=== PATIENT | female | born 1970 | race Caucasian/White ===

== ENCOUNTER 2024-11-22 12:10 | Observation (INO) ==
[2024-11-22] MEDS: DUONEB NEB STA (12:46)
[2024-11-22 12:53] LABS: IMMATURE GRANULOCYTE # (AUTO) 0.0 (0.0-1.0); IMMATURE GRANULOCYTE % (AUTO) 0.4 % (0.0-5.0); RDW COEFFICIENT OF VARIATION 15.2 % (11.6-14.8)
[2024-11-22 13:06] LABS: CREATININE 0.58 mg/dL (0.60-1.30)
[2024-11-22] MEDS: SOLU-MEDROL 125 MG ONE (13:08)
[2024-11-22] MEDS: SOLU-MEDROL 125 MG 125 MG in SODIUM CHLORIDE 50 ML IV STA (13:08)
--- NOTE | 2024-11-22 13:23 | ED.PDOC ---
General HPI ED Provider: Dr. KAREN SHORE DO Chief Complaint: Shortness of Air Stated Complaint: 54-year-old white female presents with complaints of acute shortness of breath. Patient has COPD and CHF and has been having acute worsening shortness of breath for the last 2 to 3 days. She states she has actually been more short of breath for a week but it got acutely worse. She went to [facility] and basically was given some steroids and some breathing treatments but when they ask her about methamphetamine use and she was honest they sort of "wash their hands of me". She presents today POV after her just not been able to get any relief from the severe shortness of breath states she feels like she has rubber bands wrapped around her chest tightly. She does not complain of any diaphoresis or left arm pain or left jaw pain. No nausea or vomiting associated with chest discomfort. She does not describe chest pain just very chest tight. Not moving much air. She has used her inhalers and her nebulizer at home. She has albuterol for home nebs. As far as she can tell she has not had fevers or chills. She is just been really really hot and having to sit in front of the fan and then gets a cold and has to cut the fan off. She denies any sick contacts that she is aware. Specifically no headache no runny nose no sore throat no pain on urination no abdominal pain no black tarry stools no bright red rectal blood no nausea vomiting diarrhea no unilateral weakness no vision changes and no headache. Patient is compliant with meds and denies being out of anything. Time Seen by Provider: 11/22/24 12:23 Mode of Arrival: Walk-In Information Source: Patient Exam Limitations: No limitations Nursing and Triage Documentation Reviewed and Agree: Yes Opioid Naive vs. Tolerant Does Patient Take Opioids?: Yes Is Patient Opioid Naive?: No What is Opioid Naive?: *Opioid Naive implies the patient is not already taking opioids or not chronically receiving opioids on a daily basis. *PRN dosing is not "usually" associated with tolerance. *Patients are at higher risk of over-sedation and aspiration. Is Patient Opioid Tolerant?: Yes What is Opioid Tolerant?: *Opioid Tolerance implies less than the expected response to an opioid. *Acquired tolerance is defined by the patient taking 60mg of oral morphine daily (or equianalgesic dose of another opioid) for 1 week or more. *Often associated with chronic pain. *May take more than usual dose to achieve desired pain control. Review of Systems Review Of Systems Constitutional: Denies Chills or Fever Eyes: Denies Blurred vision or Vision change Ears, Nose, Mouth, Throat: Denies Ear pain, Nose discharge or Throat pain Respiratory: Reports Cough, Orthopnea, Shortness of Breath, Stridor, Wheezing and Other (Chest tightness) Cardiac: Denies Chest pain GI: Denies Abdominal pain, Diarrhea, Nausea or Vomiting : Denies Burning or Dysuria Neurological: Reports Headache; Denies Weakness PFSH PFSH Family History Mother Lung cancer FATHER Myocardial infarct Social History Smoking and tobacco status: Current every day smoker Tobacco type: cigarettes Smoking packs per day: 1 Smoking cigarettes per day: 20.0 Alcohol intake: never Substance use type: former substance user Carmen/yazdanism: N/A Special carmen needs: No Agree to transfusion: Yes Adopted: No Caregiver/support person: No Foster care: No Household members: other Housing: house Marital status: U UNKNOWN Lives independently: Yes Daycare: no daycare Number of children: 4 Highest education level completed: some college, no degree Financial difficulty paying for basics: very hard service: No longterm: No Current occupational status: disabled History of recent travel: No Current gender identity: female Seatbelt use: sometimes Helmet use: Yes Drives intoxicated or rides with intoxicated local intermodal truck driver: No Current diet type/program: regular Working smoke detector in home: Yes Fire extinguisher in home: Yes Carbon monoxide detector in home: No Firearms in home: No What type of physical activity do you participate in?: none Female Reproductive History Menstrual Hx Hysterectomy: Yes Hx Tubal Ligation: No Physical Exam Physical Exam Appearance: Reports Other (Acutely and chronically ill-appearing 54-year-old white female who appears older than stated age. She is in moderate to severe respiratory distress with only 1-2 word sentences able to be spoken. She is tachypneic tachycardic and tripoding. She is sitting in front of a fan at time of initial exam) Ill-appearing: Moderate Pain Distress: None Eyes: Reports LUIS EDUARDO, EOMI and Conjunctiva clear ENT: Reports Ears normal, Nose normal, Oropharynx normal, Rhinorrhea (minimal clear rhinorrhea.) and Dry mucosa; Denies Erythema Neck: Supple Respiratory: Reports Breath sounds diminished, Crackles, Rhonchi, Wheezes, Retractions and Other (Breath sounds are markedly diminished with markedly diminished air movement. Patient has wheezes and crackles with scattered rhonchi throughout. No definite asymmetry. Just not moving much air.) Cardiovascular: Reports Pulses normal, Tachycardia and Other (Unable to appreciate a murmur due to respiratory sounds.) GI/: Reports Soft, Nontender, Bowel sounds normal and Other (Abdomen is soft, obese, and protuberant but not distended. Normoactive bowel sounds. Not evaluated for masses or megaly. No rebound tenderness to exam.) Musculoskeletal: Reports Normal strength, ROM intact, No edema and No calf tenderness Skin: Reports Dry, Normal color, Pale and Other (Skin is cool to touch but patient is in front of a fan due to breathing problems.) Neurological: Reports Sensation intact, Motor intact, Reflexes intact, Cranial nerves intact, Alert and Oriented Psychiatric: Reports Affect appropriate and Mood appropriate Interpretation EKG Interpretation EKG Interpretation By: ED Physician (EKG interpreted by disposition at 1313 p.m. Karen Shore) Time of EKG #1: 13:09 Rate: Tachy (116) Rhythm: Sinus Ectopy: None [place]: [place] Interpretation: Normal intervals; no STEMI; LAE; ST-T abnormalities nonspecific; abnormal E Physician Progress Note Physician Progress Note: 54-year-old white female presents with complaints of acute shortness of breath. Patient has COPD and CHF and has been having acute worsening shortness of breath for the last 2 to 3 days. She states she has actually been more short of breath for a week but it got acutely worse. Patient's presentation along with significant clinical history prompts aggressive nebulizer, pulmonary treatments. Also will check labs and exclude any cardiac involvement. Patient's O2 sats are 95 to 96% on room air at this time. However she is markedly tachypneic and working hard. May need to consider BiPAP or even intubation if we cannot get respiratory status improved so she does not tire. Discussed with patient after DuoNeb and then some IV Lasix, she is still not moving as much air as I would like and still working to breathe. She is in agreement to be admitted and we have called nurse practitioner Clarence Arteaga who agrees to admit here. Accepted at 15:15p. Patient known to her. Course Course 11/23/24 05:29 11/23/24 05:29 Orders, Labs, Meds: Lab Review 11/22/24 12:46 WBC 9.49 RBC 4.51 Hgb 12.2 Hct 39.6 MCV 87.8 MCH 27.1 MCHC 30.8 L RDW Coeff of [place]ven[place] 15.2 H Plt Count 218 Immature Gran % (Auto) 0.4 Neut % (Auto) 61.7 Lymph % (Auto) 31.7 [place] % (Auto) 4.8 Eos % (Auto) 0.6 Baso % (Auto) 0.8 Neut # (Auto) 5.8 Lymph # (Auto) 3.0 [place] # (Auto) 0.5 Eos # (Auto) 0.1 Baso # (Auto) 0.1 Immature Gran # (Auto) 0.0 Sodium 141.5 Potassium 4.01 Chloride 104.2 Carbon Dioxide 27.2 Anion Gap 14.11 BUN 11.9 Creatinine 0.58 L Estimated GFR (MDRD) 108.00 BUN/Creatinine Ratio 20.51 Glucose 143.2 H Calcium 9.18 Total Bilirubin 0.77 AST 24.5 ALT 29.0 Alkaline Phosphatase 67.8 Troponin I 0.017 NT-Pro-B Natriuret Pep 6000 H Total Protein 6.73 Albumin 3.76 Globulin 2.97 Albumin/Globulin Ratio 1.26 Orders Category Date Time Status ADMIT OBSERVATION [PLACE PATIENT OBSERVATION] .TO ADMISSION 11/22/24 15:04 Active MEDSURG (MONITORED BED) EKG-(ED ONLY) Stat CARDIO 11/22/24 12:42 Completed TELEMETRY MONITORING TELE CARE 11/22/24 15:05 Active CBC W/ AUTO DIFF Stat LAB 11/22/24 12:46 Completed CMP [COMPREHENSIVE METABOLIC PANEL] Stat LAB 11/22/24 12:46 Completed NT-PROBNP(ED) Stat LAB 11/22/24 12:46 Completed TROPONIN I Stat LAB 11/22/24 12:46 Completed Ceftriaxone/D5w 1 gm Premix [Rocephin 1 gm/50 ml D5w] Meds 11/22/24 12:40 Discontinued 1 gm in 50 ml IV ONCE Furosemide [Lasix] Meds 11/22/24 13:30 Discontinued 60 mg IVP ONCE STA Ipratropium/Albuterol Neb [Duoneb] Meds 11/22/24 12:38 Discontinued 3 ml NEB ONCE STA Methylprednisolone Sod Succ/Pf [Solu-Medrol 125 mg] Meds 11/22/24 12:57 Discontinued 125 mg .ROUTE .STK-MED ONE Methylprednisolone Sod Succ/Pf [Solu-Medrol 125 mg] 125 Meds 11/22/24 12:39 Discontinued mg 0.9 % Sodium Chloride [Sodium Chloride] 50 ml IV ONCE CHEST, 2 VIEWS PA & LAT Stat RADS 11/22/24 13:04 Completed Medications Generic Name Dose Route Start Last Admin Trade Name Freq PRN Reason Stop Dose Admin Acetaminophen 650 mg 11/22/24 15:45 Acetaminophen 325 Mg Tablet PO Q4H PRN Mild Pain Albuterol/Ipratropium 3 ml 11/22/24 17:00 11/23/24 05:43 Ipratropium/Albuterol Vial.Neb NEB 3 ml RTQ4H LOVE Administration Amlodipine Besylate 10 mg 11/23/24 09:00 11/23/24 08:26 Amlodipine Besylate 5 Mg Tablet PO 10 mg DAILY LOVE Administration Aspirin 81 mg 11/23/24 07:30 11/23/24 08:28 Aspirin 81 Mg Tablet.Dr PO 81 mg DAILYWM2 LOVE Administration Atorvastatin Calcium 40 mg 11/22/24 21:00 11/22/24 20:29 Atorvastatin Calcium 20 Mg Tablet PO 40 mg BEDTIME LOVE Administration Budesonide/Formoterol Fumarate 2 puff 11/22/24 21:00 11/23/24 08:27 Budesonide/Formoterol Fumarate 160/4.5 Mcg Inhaler IH 2 puff BID LOVE Administration Clopidogrel Bisulfate 75 mg 11/23/24 09:00 11/23/24 08:26 Clopidogrel Bisulfate 75 Mg Tablet PO 75 mg DAILY LOVE Administration Empagliflozin 10 mg 11/23/24 09:00 11/23/24 08:27 Empagliflozin 10 Mg Tablet PO 10 mg DAILY LOVE Administration Furosemide 40 mg 11/22/24 21:00 11/23/24 05:16 Furosemide Inj 40 Mg/4 Ml Vial IVP 40 mg Q8HR LOVE Administration Gabapentin 600 mg 11/22/24 21:00 11/23/24 08:27 Gabapentin 300 Mg Capsule PO 600 mg TID LOVE Administration Lisinopril 40 mg 11/23/24 09:00 11/23/24 08:26 Lisinopril 40 Mg Tablet PO 40 mg DAILY LOVE Administration Metoprolol Succinate 100 mg 11/22/24 19:00 11/22/24 20:29 Metoprolol Succinate 50 Mg Tab.Er.24h PO 100 mg QPM LOVE Administration Nicotine 1 patch 11/23/24 09:00 11/23/24 09:02 Nicotine 21 Mg Patch.Td24 TD 1 patch DAILY LOVE Administration Oxycodone/Acetaminophen 1 tab 11/22/24 18:55 11/22/24 20:56 Oxycodone/Acetaminophen 10/325 Mg Tablet PO 1 tab Q6HR PRN Administration MODERATE PAIN Pantoprazole Sodium 40 mg 11/23/24 09:00 11/23/24 08:26 Pantoprazole Sodium 40 Mg Tablet.Dr PO 40 mg QDAC2 LOVE Administration Paroxetine HCl 40 mg 11/23/24 09:00 11/23/24 08:26 Paroxetine Hcl 20 Mg Tablet PO 40 mg QAM LOVE Administration Promethazine HCl 25 mg 11/22/24 20:49 11/22/24 20:56 Promethazine Hcl 25 Mg Tablet PO 25 mg Q6H PRN Administration Nausea / Vomiting Solifenacin 10 mg 11/23/24 09:00 11/23/24 08:26 Solifenacin Succinate 5 Mg Tablet PO 10 mg DAILY LOVE Administration Spironolactone 25 mg 11/23/24 09:00 11/23/24 08:25 Spironolactone 25 Mg Tablet PO 25 mg DAILY LOVE Administration Discontinued Medications Generic Name Dose Route Start Last Admin Trade Name Freq PRN Reason Stop Dose Admin Albuterol/Ipratropium 3 ml 11/22/24 12:38 11/22/24 12:46 Ipratropium/Albuterol Vial.Neb NEB 11/22/24 12:39 3 ml ONCE STA Administration Furosemide 60 mg 11/22/24 13:30 11/22/24 13:35 Furosemide Inj 100 Mg/10 Ml Vial IVP 11/22/24 13:31 60 mg ONCE STA Administration Methylprednisolone Sodium 52 mls @ 100 mls/hr 11/22/24 12:39 11/22/24 13:08 Succinate 125 mg/ Sodium IV 11/22/24 13:10 Not Given Chloride ONCE STA CEFTRIAXONE/D5W 1 GM PREMIX 1 gm in 50 mls @ 100 mls/hr 11/22/24 12:40 11/22/24 15:33 Rocephin 1 Gm/50 Ml D5w IV 11/22/24 13:09 Not Given ONCE STA Potassium Chloride 20 meq 11/23/24 08:24 11/23/24 09:02 Potassium Chloride 20 Meq Tab PO 11/23/24 08:25 20 meq ONCE ONE Administration Vital Signs: Temp Pulse Resp BP Pulse Ox 11/22/24 12:30 97.8 F 124 H 18 177/113 H 97 Discharge Plan Discharge Patient Disposition: PLACED OBSERVATION Discharge Problem: Acute dyspnea Acute respiratory failure Qualifiers: Respiratory failure complication: unspecified whether with hypoxia or hypercapnia Qualified Code(s): J96.00 - Acute respiratory failure, unspecified whether with hypoxia or hypercapnia Acute CHF (congestive heart failure) Qualifiers: Heart failure type: combined systolic and diastolic Qualified Code(s): I50.41 - Acute combined systolic (congestive) and diastolic (congestive) heart failure Did you review [place] NURSING INFORMATICS ANALYST for ALL controlled substances?: Not Applicable ED Provider: KAREN SOHRE Condition: Fair
--- NOTE | 2024-11-22 13:28 | DI ---
EXAM: PA AND LATERAL VIEWS OF THE CHEST HISTORY: Acute respiratory distress COMPARISON: Chest x-ray 09/23/2024 and priors FINDINGS: The cardiomediastinal silhouette is normal. There is no pneumothorax or pleural effusion. There is no consolidation, nodule or mass. The osseous structures are unremarkable. IMPRESSION: No acute cardiopulmonary process
[2024-11-22] MEDS: LASIX IVP STA (13:35)
[2024-11-22] MEDS: ROCEPHIN 1 GM/50 ML D5W 1 GM/50 ML BAG IV STA (15:33)
[2024-11-22] MEDS ORDERED: TYLENOL PO PRN (15:45)
[2024-11-22 16:54] VITALS: BMI 34.4
[2024-11-22] MEDS: DUONEB NEB SCH (17:55)
--- NOTE | 2024-11-22 18:25 | PCM ---
Date of Service Date Seen by Provider: 11/22/24 Time Seen by Provider: 15:15 Admit Day/Time Admission Date: 11/22/24 Admission Time: 15:00 Reason for Admission Chief Complaint: ACUTE RESPITORY DISTRESS, ACUTE CHF Hospital Provider Hospital Provider: HAYDER NEAL, [facility] History of Present Illness History of Present Illness: 54 yo female with pmh of CHFrEF, HTN, HLD, GERD, and methamphetamine abuse presented to the ER with complaints of shortness of breath. States she was seen at [facility] ER approx 3 days ago cause her inhaler and neb treatments were not effective and once she told them she had used meth they dismissed her. Per records, there is no record of her being at [facility]. States that SOB has continued to worsen, has been taking her meds occasionally but not daily, and her nebs don't seem to be helping anymore. Admits to using meth a few days ago in attempt to help "open her up like it used to" but was not helpful. Denies any chest pain, fever, or other symptoms. Does report worsening lower extremity edema. Found to have BNP of 6000. Chest xray clear. Other labs unremarkable. Maintaining O2 sat above 90% on RA. Patient does have some accessory muscle use but is able to converse without difficulty. Of note, patient's diuretics have not been filled since discharge date of last admission in September. She was prescribed 1 month supply with no refills and has not seen PCP. Admitted to Med/Surg Observation. Case Discussed With Case Discussed With: Patient's case was discussed with the ER Physicians, Dr. Shore. [facility] Family History Mother Lung cancer FATHER Myocardial infarct Social History Smoking and tobacco status: Current every day smoker Tobacco type: cigarettes Smoking packs per day: 1 Smoking cigarettes per day: 20.0 Alcohol intake: never Substance use type: former substance user Carmen/rastafari: N/A Special carmen needs: No Agree to transfusion: Yes Adopted: No Caregiver/support person: No Foster care: No Household members: other Housing: house Marital status: U UNKNOWN Lives independently: Yes Daycare: no daycare Number of children: 4 Highest education level completed: some college, no degree Financial difficulty paying for basics: very hard service: No detention: No Current occupational status: disabled History of recent travel: No Current gender identity: female Seatbelt use: sometimes Helmet use: Yes Drives intoxicated or rides with intoxicated funeral driver: No Current diet type/program: regular Working smoke detector in home: Yes Fire extinguisher in home: Yes Carbon monoxide detector in home: No Firearms in home: No What type of physical activity do you participate in?: none Allergies Allergies Allergy/AdvReac Type Severity Reaction Status Date / Time codeine AdvReac RASH Verified 11/22/24 12:30 Sulfa (Sulfonamide AdvReac Rash Verified 11/22/24 12:30 Antibiotics) Current Medications Home Medications Acetaminophen (Acetaminophen 325 Mg Tablet) 650 mg PO Q4H PRN PRN Reason: Mild Pain Albuterol/Ipratropium (Ipratropium/Albuterol Vial.Neb) 3 ml NEB RTQ4H [facility] Last Admin: 11/23/24 05:43 Dose: 3 ml Amlodipine Besylate (Amlodipine Besylate 5 Mg Tablet) 10 mg PO DAILY [facility] Last Admin: 11/23/24 08:26 Dose: 10 mg Aspirin (Aspirin 81 Mg Tablet.Dr) 81 mg PO DAILYWM2 [facility] Last Admin: 11/23/24 08:28 Dose: 81 mg Atorvastatin Calcium (Atorvastatin Calcium 20 Mg Tablet) 40 mg PO BEDTIME [facility] Last Admin: 11/22/24 20:29 Dose: 40 mg Budesonide/Formoterol Fumarate (Budesonide/Formoterol Fumarate 160/4.5 Mcg Inhaler) 2 puff IH BID [facility] Last Admin: 11/23/24 08:27 Dose: 2 puff Clopidogrel Bisulfate (Clopidogrel Bisulfate 75 Mg Tablet) 75 mg PO DAILY [facility] Last Admin: 11/23/24 08:26 Dose: 75 mg Empagliflozin (Empagliflozin 10 Mg Tablet) 10 mg PO DAILY [facility] Last Admin: 11/23/24 08:27 Dose: 10 mg Furosemide (Furosemide Inj 40 Mg/4 Ml Vial) 40 mg IVP Q8HR [facility] Last Admin: 11/23/24 05:16 Dose: 40 mg Gabapentin (Gabapentin 300 Mg Capsule) 600 mg PO TID [facility] Last Admin: 11/23/24 08:27 Dose: 600 mg Lisinopril (Lisinopril 40 Mg Tablet) 40 mg PO DAILY [facility] Last Admin: 11/23/24 08:26 Dose: 40 mg Metoprolol Succinate (Metoprolol Succinate 50 Mg Tab.Er.24h) 100 mg PO QPM [facility] Last Admin: 11/22/24 20:29 Dose: 100 mg Nicotine (Nicotine 21 Mg Patch.Td24) 1 patch TD DAILY [facility] Last Admin: 11/23/24 09:02 Dose: 1 patch Oxycodone/Acetaminophen (Oxycodone/Acetaminophen 10/325 Mg Tablet) 1 tab PO Q6HR PRN PRN Reason: MODERATE PAIN Last Admin: 11/22/24 20:56 Dose: 1 tab Pantoprazole Sodium (Pantoprazole Sodium 40 Mg Tablet.Dr) 40 mg PO QDAC2 [facility] Last Admin: 11/23/24 08:26 Dose: 40 mg Paroxetine HCl (Paroxetine Hcl 20 Mg Tablet) 40 mg PO QAM [facility] Last Admin: 11/23/24 08:26 Dose: 40 mg Promethazine HCl (Promethazine Hcl 25 Mg Tablet) 25 mg PO Q6H PRN PRN Reason: Nausea / Vomiting Last Admin: 11/22/24 20:56 Dose: 25 mg Solifenacin (Solifenacin Succinate 5 Mg Tablet) 10 mg PO DAILY [facility] Last Admin: 11/23/24 08:26 Dose: 10 mg Spironolactone (Spironolactone 25 Mg Tablet) 25 mg PO DAILY [facility] Last Admin: 11/23/24 08:25 Dose: 25 mg albuterol sulfate 90 mcg/actuation aerosol inhaler 2 puff inhalation Q4H PRN shortness of breath or wheezing 07/15/24 [History Confirmed 11/22/24] amlodipine 10 mg tablet (Norvasc) 10 mg PO QDAY 07/15/24 [History Confirmed 11/22/24] aspirin 81 mg tablet,delayed release 81 mg PO QDAY 07/15/24 [History Confirmed 11/22/24] atorvastatin 40 mg tablet 40 mg PO QHS 07/15/24 [History Confirmed 11/22/24] clopidogrel 75 mg tablet (Plavix) 75 mg PO QDAY 07/15/24 [History Confirmed 11/22/24] cyclobenzaprine 10 mg tablet 30 mg PO BID PRN muscle spasm 07/15/24 [History Confirmed 11/22/24] gabapentin 600 mg tablet 600 mg PO TID 07/15/24 [History Confirmed 11/22/24] lisinopril 40 mg tablet 40 mg PO QDAY 07/15/24 [History Confirmed 11/22/24] loratadine 10 mg tablet (Claritin) 10 mg PO QDAY PRN allergy symptoms 07/15/24 [History Confirmed 11/22/24] oxycodone-acetaminophen 10 mg-325 mg tablet (Percocet) 1 tab PO Q6HR PRN moderate pain 07/15/24 [History Confirmed 11/22/24] pantoprazole 40 mg tablet,delayed release (Protonix) 40 mg PO QDAY 07/15/24 [History Confirmed 11/22/24] paroxetine HCl 40 mg tablet 40 mg PO QAM 07/15/24 [History Confirmed 11/22/24] solifenacin 10 mg tablet (Vesicare) 10 mg PO QDAY 07/15/24 [History Confirmed 11/22/24] budesonide-formoterol HFA 160 mcg-4.5 mcg/actuation aerosol inhaler (Symbicort) 2 puff inhalation BID 09/23/24 [History Confirmed 11/22/24] ergocalciferol (vitamin D2) 1,250 mcg (50,000 unit) capsule 1,250 mcg PO WEEKLY 09/23/24 [History Confirmed 11/22/24] albuterol sulfate 2.5 mg/3 mL (0.083 %) solution for nebulization 2.5 mg (3 mL) inhalation Q6H PRN shortness of breath or wheezing #90 mL 09/26/24 [Rx Confirmed 11/22/24] empagliflozin 10 mg tablet (Jardiance) 10 mg PO DAILY #30 tabs 09/26/24 [Rx Confirmed 11/22/24] metoprolol succinate 50 mg tablet,extended release 24 hr 75 mg (1.5 x 50 mg) PO BID #60 tabs 09/26/24 [Rx Confirmed 11/22/24] spironolactone 25 mg tablet 25 mg PO DAILY #30 tabs 09/26/24 [Rx Confirmed 11/22/24] torsemide 20 mg tablet 20 mg PO QDAY #30 tabs 09/26/24 [Rx Confirmed 11/22/24] metoprolol succinate 100 mg tablet,extended release 24 hr 100 mg PO DAILY 11/22/24 [History Confirmed 11/22/24] metoprolol succinate 50 mg tablet,extended release 24 hr 50 mg PO DAILY 11/22/24 [History Confirmed 11/22/24] promethazine 25 mg tablet 25 mg PO Q6H PRN nausea 11/22/24 [History Confirmed 11/22/24] Opioid Naive vs. Tolerant Does Patient Take Opioids?: Yes Is Patient Opioid Naive?: No What is Opioid Naive?: *Opioid Naive implies the patient is not already taking opioids or not chronically receiving opioids on a daily basis. *PRN dosing is not "usually" associated with tolerance. *Patients are at higher risk of over-sedation and aspiration. Is Patient Opioid Tolerant?: No What is Opioid Tolerant?: *Opioid Tolerance implies less than the expected response to an opioid. *Acquired tolerance is defined by the patient taking 60mg of oral morphine daily (or equianalgesic dose of another opioid) for 1 week or more. *Often associated with chronic pain. *May take more than usual dose to achieve desired pain control. Review of Systems Constitutional: Reports No symptoms Head: Reports Normocephalic and Atraumatic Eyes: Reports No symptoms Ears: Reports No symptoms Nose: Reports No symptoms Mouth: Reports No symptoms Throat: Reports No symptoms Cardiovascular: Reports No symptoms and Edema; Denies Chest pain, Chest Pressure or Irregular Heartbeat Respiratory: Reports Shortness of air; Denies Cough Gastrointestinal: Reports No symptoms Genitourinary: Reports No Symptoms Musculoskeletal: Reports No symptoms Endocrine: Reports No symptoms Hematology: Reports No symptoms Immunology: Reports No symptoms Neurological: Reports No symptoms Psychiatric: Reports No symptoms Physical examination Most Recent Vital Signs: Most Recent Vital Signs Temperature 96.8 F L 11/22/24 16:28 Temperature Source Temporal Artery Scan 11/22/24 16:28 Temperature Source Temporal Artery Scan 11/22/24 12:30 Pulse Rate 112 H 11/22/24 16:28 Respiratory Rate 18 11/22/24 16:28 Blood Pressure 177/113 H 11/22/24 12:30 Blood Pressure Right Arm 160/91 11/22/24 16:28 Blood Pressure Position Sitting 11/22/24 16:28 O2 Sat by Pulse Oximetry 94 L 11/22/24 16:28 Oxygen Delivery Method Room Air 11/22/24 18:00 Height 5 ft 2 in 11/22/24 16:28 Weight 85.3 kg 11/22/24 16:28 Telemetry Type Remote Telemetry 11/22/24 16:29 Telemetry Monitoring Started 11/22/24 16:29 Telemetry Heart Rate 111 H 11/22/24 16:29 Telemetry SPO2 92 L 09/25/24 01:00 EKG AK Interval 0.16 11/22/24 16:29 EKG QRS Interval 0.07 11/22/24 16:29 Telemetry Strip Reading Sinus Tachycardia 11/22/24 16:29 Appearance: Positive No Apparent Distress and Alert and Oriented x3 Skin: Positive Warm and Good Turgor HEENT: Positive Normocephalic and PERRLA Neck: Positive Supple and Midline Trachea Chest/Lungs: Positive Symmetrical With Equal Breath Sounds and Other (diffuse crackles throughout lung taylor, severely diminished breath sounds); Negative Rales, Rhonci or Wheezes Heart: Positive RRR and Pulses Normal; Negative Irregular Rhythm, Tachycardia or Bracycardia GI/: Positive Soft, Nontender, Bowel Sounds Normal and No Distention Musculoskeletal: Positive Normal Gait and Station Extremities: Positive Edema (+3 pitting BLE), Intact Peripheral Pulses, Stable Joints Without Laxity and Good ROM in All Joints Neurological: Positive Sensation Intact, Motor intact, Reflexes Intact, Alert, Oriented and Muscle Strength 5/5 in Upper and Lower Extremities Bilaterally Psychiatric: Positive Oriented x4 Labs This Visit Labs This Visit: Labs This Visit 11/22/24 12:46 WBC 9.49 RBC 4.51 Hgb 12.2 Hct 39.6 MCV 87.8 MCH 27.1 MCHC 30.8 L RDW Coeff of Ujvencio 15.2 H Plt Count 218 Immature Gran % (Auto) 0.4 Neut % (Auto) 61.7 Lymph % (Auto) 31.7 [place] % (Auto) 4.8 Eos % (Auto) 0.6 Baso % (Auto) 0.8 Neut # (Auto) 5.8 Lymph # (Auto) 3.0 [place] # (Auto) 0.5 Eos # (Auto) 0.1 Baso # (Auto) 0.1 Immature Gran # (Auto) 0.0 Sodium 141.5 Potassium 4.01 Chloride 104.2 Carbon Dioxide 27.2 Anion Gap 14.11 BUN 11.9 Creatinine 0.58 L Estimated GFR (MDRD) 108.00 BUN/Creatinine Ratio 20.51 Glucose 143.2 H Calcium 9.18 Total Bilirubin 0.77 AST 24.5 ALT 29.0 Alkaline Phosphatase 67.8 Troponin I 0.017 NT-Pro-B Natriuret Pep 6000 H Total Protein 6.73 Albumin 3.76 Globulin 2.97 Albumin/Globulin Ratio 1.26 Imaging Imaging: EXAM: PA AND LATERAL VIEWS OF THE CHEST HISTORY: Acute respiratory distress COMPARISON: Chest x-ray 09/23/2024 and priors FINDINGS: The cardiomediastinal silhouette is normal. There is no pneumothorax or pleural effusion. There is no consolidation, nodule or mass. The osseous structures are unremarkable. IMPRESSION: No acute cardiopulmonary process Review Statement Review Statement: I have independently reviewed and interpreted the labs/EKGs/imaging that were ordered by the ER provider. I have reviewed all outside records that are available currently in our EMR including imaging/notes/labs from previous visits. Plan Plan: 1. Acute CHFrEF Exacerbation - echo during stay in 09/2024 showed EF 27% with hypokinetic motion, referred to [facility] during last visit and has not had appointment yet, lasix 40 mg Q8H, daily weight, I&O, fluid restriction, continue home meds except torsemide, nebs Q4H 2. HTN - chronic, continue home medications 3. HLD - chronic, continue home medications 4. COPD - chronic, feel this is related to fluid overload, not treating for exacerbation at this time, continue home medications 5. GERD - chronic, continue home medications 6. Methamphetamine abuse - discussed again this visit harmful effects on body DVT Prophylaxis: Up ad pete Time Spent: Greater than 80 minutes spent with patient, 50% of the time spent with this patient was devoted to counseling and coordination of care. [facility]in minutes spent discussing advance care planning. Smoking Cessation: 3-10 minutes spent discussing smoking cessation. Disposition: Admit to: Med/Surg Observation Full Code Discussed Plan of Care with Dr. Monica Faust. Medications Medication Orders: Medications Ordered Category Date Time Status Acetaminophen [Tylenol] Meds 11/22/24 15:45 Active 650 mg PO Q4H PRN Furosemide [Lasix] Meds 11/22/24 21:00 Active 40 mg IVP Q8HR Ipratropium/Albuterol Neb [Duoneb] Meds 11/22/24 17:00 Active 3 ml NEB RTQ4H
[2024-11-22] MEDS: LASIX IVP SCH (20:28)
[2024-11-22] MEDS: NEURONTIN PO SCH (20:28)
[2024-11-22] MEDS: TOPROL XL PO SCH (20:29)
[2024-11-22] MEDS: LIPITOR PO SCH (20:29)
[2024-11-22] MEDS: SYMBICORT 160-4.5 MCG INHALER IH SCH (20:30)
[2024-11-22] MEDS: PHENERGAN TAB PO PRN (20:56)
[2024-11-22] MEDS: PERCOCET 10-325 PO PRN (20:56)
[2024-11-23 05:41] LABS: IMMATURE GRANULOCYTE # (AUTO) 0.1 (0.0-1.0); IMMATURE GRANULOCYTE % (AUTO) 0.6 % (0.0-5.0); RDW COEFFICIENT OF VARIATION 14.9 % (11.6-14.8)
[2024-11-23 05:53] LABS: CREATININE 0.77 mg/dL (0.60-1.30)
[2024-11-23] MEDS: ALDACTONE PO SCH (08:25)
[2024-11-23] MEDS: VESICARE PO SCH (08:26)
[2024-11-23] MEDS: PLAVIX PO SCH (08:26)
[2024-11-23] MEDS: PROTONIX PO SCH (08:26)
[2024-11-23] MEDS: NORVASC PO SCH (08:26)
[2024-11-23] MEDS: PAXIL PO SCH (08:26)
[2024-11-23] MEDS: ZESTRIL PO SCH (08:26)
[2024-11-23] MEDS: JARDIANCE PO SCH (08:27)
[2024-11-23] MEDS: ASPIRIN EC PO SCH (08:28)
[2024-11-23] MEDS: K-DUR PO ONE (09:02)
[2024-11-23] MEDS: NICODERM 21 MG TD SCH (09:02)
--- NOTE | 2024-11-23 09:27 | PCM.PROG ---
Date/Time Seen Date Seen by Provider: 11/23/24 Time Seen by Provider: 09:00 Provider [facility] Chief Complaint Chief Complaint: ACUTE RESPITORY DISTRESS, ACUTE CHF Subjective Subjective: Feeling much better today. Edema improved. Has urinated 2L thus far. Objective Appearance: Positive No Apparent Distress and Alert and Oriented x3 Chest/Lungs: Positive Symmetrical With Equal Breath Sounds and Clear to Auscultation Bilaterally (severely diminished) Heart: Positive RRR and Pulses Normal; Negative Irregular Rhythm or Tachycardia GI/: Positive Soft, Nontender, Bowel Sounds Normal and No Distention Musculoskeletal: Positive Normal Gait and Station Neurological: Positive Sensation Intact, Motor intact, Reflexes Intact, Alert, Oriented and Muscle Strength 5/5 in Upper and Lower Extremities Bilaterally Additional Findings: No edema today Vital Signs Vital Signs: Vital Signs: Last 24 Hours 11/22/24 12:30 11/22/24 16:20 11/22/24 16:28 Temperature 97.8 F 96.8 F L Temperature Source Temporal Artery Scan Temporal Artery Scan Pulse Rate 124 H 112 H Respiratory Rate 18 18 Blood Pressure 177/113 H Blood Pressure Mean Blood Pressure Right Arm 160/91 Blood Pressure Location Blood Pressure Position Sitting O2 Sat by Pulse Oximetry 97 94 L Oxygen Delivery Method Room Air Room Air Oxygen Flow Rate Height 5 ft 2 in 5 ft 2 in Weight 88.1 kg 85.3 kg Telemetry Type Telemetry Monitoring Telemetry Heart Rate Telemetry SPO2 EKG NM Interval EKG QRS Interval Telemetry Strip Reading 11/22/24 16:29 11/22/24 17:00 11/22/24 18:00 Temperature Temperature Source Pulse Rate Respiratory Rate Blood Pressure Blood Pressure Mean Blood Pressure Right Arm Blood Pressure Location Blood Pressure Position O2 Sat by Pulse Oximetry Oxygen Delivery Method Room Air Room Air Oxygen Flow Rate Height Weight Telemetry Type Remote Telemetry Telemetry Monitoring Started Telemetry Heart Rate 111 H Telemetry SPO2 EKG NM Interval 0.16 EKG QRS Interval 0.07 Telemetry Strip Reading Sinus Tachycardia 11/22/24 18:00 11/22/24 19:00 11/22/24 19:00 Temperature 96.8 F L Temperature Source Temporal Artery Scan Pulse Rate 111 H Respiratory Rate 20 Blood Pressure 163/88 H Blood Pressure Mean 113 Blood Pressure Right Arm Blood Pressure Location Right Arm Blood Pressure Position Supine O2 Sat by Pulse Oximetry 88 L Oxygen Delivery Method Room Air Room Air Oxygen Flow Rate Height Weight Telemetry Type Remote Telemetry Telemetry Monitoring Continues Telemetry Heart Rate 120 H Telemetry SPO2 93 EKG NM Interval 0.12 EKG QRS Interval 0.[address] 11/22/24 20:00 11/22/24 20:00 11/22/24 21:00 Temperature Temperature Source Pulse Rate Respiratory Rate Blood Pressure Blood Pressure Mean Blood Pressure Right Arm Blood Pressure Location Blood Pressure Position O2 Sat by Pulse Oximetry Oxygen Delivery Method Room Air Room Air Room Air Oxygen Flow Rate Height Weight Telemetry Type Telemetry Monitoring Telemetry Heart Rate Telemetry SPO2 EKG NM Interval EKG QRS Interval Telemetry Strip Reading 11/22/24 21:25 11/22/24 22:00 11/22/24 23:00 Temperature 97.7 F Temperature Source Temporal Artery Scan Pulse Rate 94 Respiratory Rate 18 Blood Pressure 135/74 Blood Pressure Mean 94 Blood Pressure Right Arm Blood Pressure Location Right Arm Blood Pressure Position Sitting O2 Sat by Pulse Oximetry 90 L Oxygen Delivery Method Room Air Room Air Room Air Oxygen Flow Rate Height Weight Telemetry Type Telemetry Monitoring Telemetry Heart Rate Telemetry SPO2 EKG NM Interval EKG QRS Interval Telemetry Strip Reading 11/23/24 00:00 11/23/24 01:00 11/23/24 01:00 Temperature Temperature Source Pulse Rate Respiratory Rate Blood Pressure Blood Pressure Mean Blood Pressure Right Arm Blood Pressure Location Blood Pressure Position O2 Sat by Pulse Oximetry Oxygen Delivery Method Room Air Nasal Cannula Oxygen Flow Rate Height Weight Telemetry Type Remote Telemetry Telemetry Monitoring Continues Telemetry Heart Rate 83 Telemetry SPO2 92 L EKG NM Interval 0.12 EKG QRS Interval 0.9 H Telemetry Strip Reading ST 11/23/24 02:00 11/23/24 02:00 11/23/24 02:54 Temperature 97.2 F L Temperature Source Temporal Artery Scan Pulse Rate 77 Respiratory Rate 18 Blood Pressure 143/92 H Blood Pressure Mean 109 Blood Pressure Right Arm Blood Pressure Location Right Arm Blood Pressure Position Supine O2 Sat by Pulse Oximetry 93 L Oxygen Delivery Method Nasal Cannula Nasal Cannula Nasal Cannula Oxygen Flow Rate 3 Height Weight Telemetry Type Telemetry Monitoring Telemetry Heart Rate Telemetry SPO2 EKG NM Interval EKG QRS Interval Telemetry Strip Reading 11/23/24 04:00 11/23/24 05:00 11/23/24 05:35 Temperature 97.8 F Temperature Source Temporal Artery Scan Pulse Rate 86 Respiratory Rate 18 Blood Pressure 131/88 Blood Pressure Mean 102 Blood Pressure Right Arm Blood Pressure Location Right Arm Blood Pressure Position Supine O2 Sat by Pulse Oximetry 93 L Oxygen Delivery Method Nasal Cannula Nasal Cannula Nasal Cannula Oxygen Flow Rate 3 Height Weight Telemetry Type Telemetry Monitoring Telemetry Heart Rate Telemetry SPO2 EKG NM Interval EKG QRS Interval Telemetry Strip Reading 11/23/24 05:41 11/23/24 05:46 11/23/24 06:00 Temperature Temperature Source Pulse Rate Respiratory Rate Blood Pressure Blood Pressure Mean Blood Pressure Right Arm Blood Pressure Location Blood Pressure Position O2 Sat by Pulse Oximetry Oxygen Delivery Method Nasal Cannula Nasal Cannula Oxygen Flow Rate 3 Height Weight 85.4 kg Telemetry Type Telemetry Monitoring Telemetry Heart Rate Telemetry SPO2 EKG NM Interval EKG QRS Interval Telemetry Strip Reading 11/23/24 07:00 11/23/24 07:00 11/23/24 08:00 Temperature Temperature Source Pulse Rate Respiratory Rate Blood Pressure Blood Pressure Mean Blood Pressure Right Arm Blood Pressure Location Blood Pressure Position O2 Sat by Pulse Oximetry Oxygen Delivery Method Nasal Cannula Room Air Oxygen Flow Rate Height Weight Telemetry Type Bedside Monitor Telemetry Monitoring Continues Telemetry Heart Rate 80 Telemetry SPO2 EKG NM Interval 0.12 EKG QRS Interval 0.12 H Telemetry Strip Reading Lab Results Lab Results: Lab Results: Last 24 Hours 11/23/24 11/22/24 05:29 12:46 WBC 8.52 9.49 RBC 4.73 4.51 Hgb 12.8 12.2 Hct 41.3 39.6 MCV 87.3 87.8 MCH 27.1 27.1 MCHC 31.0 L 30.8 L RDW Coeff of Juvencio 14.9 H 15.2 H Plt Count 235 218 Immature Gran % (Auto) 0.6 0.4 Neut % (Auto) 73.6 61.7 Lymph % (Auto) 19.6 31.7 [place] % (Auto) 6.0 4.8 Eos % (Auto) 0.0 0.6 Baso % (Auto) 0.2 0.8 Neut # (Auto) 6.3 5.8 Lymph # (Auto) 1.7 3.0 [place] # (Auto) 0.5 0.5 Eos # (Auto) 0.0 0.1 Baso # (Auto) 0.0 0.1 Immature Gran # (Auto) 0.1 0.0 Sodium 141.9 141.5 Potassium 3.47 L 4.01 Chloride 97.8 L 104.2 Carbon Dioxide 32.7 H 27.2 Anion Gap 14.87 14.11 BUN 20.3 H 11.9 Creatinine 0.77 0.58 L Estimated GFR (MDRD) 78.00 108.00 BUN/Creatinine Ratio 26.36 20.51 Glucose 130.1 H 143.2 H Calcium 9.85 9.18 Total Bilirubin 0.61 0.77 AST 21.4 24.5 ALT 27.6 29.0 Alkaline Phosphatase 64.4 67.8 Troponin I 0.017 NT-Pro-B Natriuret Pep 6000 H Total Protein 6.88 6.73 Albumin 3.90 3.76 Globulin 2.98 2.97 Albumin/Globulin Ratio 1.30 1.26 Additional Comments Additional Comments: I have independently reviewed and interpreted the labs/EKGs/imaging ordered during this hospital stay. I have reviewed outside records that are available in our EMR that pertain to medical stay including imaging/notes/labs from previous visits. Active Medications Active Medications: Medications Generic Name Dose Route Start Last Admin Trade Name Freq PRN Reason Stop Dose Admin Acetaminophen 650 mg 11/22/24 15:45 Acetaminophen 325 Mg Tablet PO Q4H PRN Mild Pain Albuterol/Ipratropium 3 ml 11/22/24 17:00 11/23/24 05:43 Ipratropium/Albuterol Vial.Neb NEB 3 ml RTQ4H LOVE Administration Amlodipine Besylate 10 mg 11/23/24 09:00 11/23/24 08:26 Amlodipine Besylate 5 Mg Tablet PO 10 mg DAILY LOVE Administration Aspirin 81 mg 11/23/24 07:30 11/23/24 08:28 Aspirin 81 Mg Tablet. PO 81 mg DAILYWM2 LOVE Administration Atorvastatin Calcium 40 mg 11/22/24 21:00 11/22/24 20:29 Atorvastatin Calcium 20 Mg Tablet PO 40 mg BEDTIME LOVE Administration Budesonide/Formoterol Fumarate 2 puff 11/22/24 21:00 11/23/24 08:27 Budesonide/Formoterol Fumarate 160/4.5 Mcg Inhaler IH 2 puff BID LOVE Administration Clopidogrel Bisulfate 75 mg 11/23/24 09:00 11/23/24 08:26 Clopidogrel Bisulfate 75 Mg Tablet PO 75 mg DAILY LOVE Administration Empagliflozin 10 mg 11/23/24 09:00 11/23/24 08:27 Empagliflozin 10 Mg Tablet PO 10 mg DAILY LOVE Administration Furosemide 40 mg 11/22/24 21:00 11/23/24 05:16 Furosemide Inj 40 Mg/4 Ml Vial IVP 40 mg Q8HR LOVE Administration Gabapentin 600 mg 11/22/24 21:00 11/23/24 08:27 Gabapentin 300 Mg Capsule PO 600 mg TID LOVE Administration Lisinopril 40 mg 11/23/24 09:00 11/23/24 08:26 Lisinopril 40 Mg Tablet PO 40 mg DAILY LOVE Administration Metoprolol Succinate 100 mg 11/22/24 19:00 11/22/24 20:29 Metoprolol Succinate 50 Mg Tab.Er.24h PO 100 mg QPM LOVE Administration Nicotine 1 patch 11/23/24 09:00 11/23/24 09:02 Nicotine 21 Mg Patch.Td24 TD 1 patch DAILY LOVE Administration Oxycodone/Acetaminophen 1 tab 11/22/24 18:55 11/22/24 20:56 Oxycodone/Acetaminophen 10/325 Mg Tablet PO 1 tab Q6HR PRN Administration MODERATE PAIN Pantoprazole Sodium 40 mg 11/23/24 09:00 11/23/24 08:26 Pantoprazole Sodium 40 Mg Tablet.Dr PO 40 mg QDAC2 LOVE Administration Paroxetine HCl 40 mg 11/23/24 09:00 11/23/24 08:26 Paroxetine Hcl 20 Mg Tablet PO 40 mg QAM LOVE Administration Promethazine HCl 25 mg 11/22/24 20:49 11/22/24 20:56 Promethazine Hcl 25 Mg Tablet PO 25 mg Q6H PRN Administration Nausea / Vomiting Solifenacin 10 mg 11/23/24 09:00 11/23/24 08:26 Solifenacin Succinate 5 Mg Tablet PO 10 mg DAILY LOVE Administration Spironolactone 25 mg 11/23/24 09:00 11/23/24 08:25 Spironolactone 25 Mg Tablet PO 25 mg DAILY LOVE Administration Plan Plan: 1. Acute CHFrEF Exacerbation - echo during stay in 09/2024 showed EF 27% with hypokinetic motion, referred to [facility] during last visit and has not had appointment yet, weight unchanged, 2L urine output so far, edema improved today, decrease to lasix 40 mg Q12H, daily weight, I&O, fluid restriction, continue home meds except torsemide, nebs Q4H 2. HTN - chronic, continue home medications 3. HLD - chronic, continue home medications 4. COPD - chronic, feel this is related to fluid overload, not treating for exacerbation at this time, continue home medications, continue nighttime oxygen use 5. GERD - chronic, continue home medications 6. Methamphetamine abuse - discussed again this visit harmful effects on body DVT Prophylaxis: Up ad pete Review Statement Review Statement: I have personally discussed and reviewed the patient's visit/currently labs/imaging/decision making with Dr. Faust, my supervising attending. Greater that 50 minutes spent with patient, 50% of the time spent with this patient was devoted to counseling and coordination of care. Additional Comments: Additional Comments: Brought to this providers attention by staff that patient stated she did not want her chart sent to her PCP to reveal her methamphetamine use because her PCP will no longer prescribe her opiates. Drug screen ordered and will be sure to PCP is made aware of this issue as well as patient's noncompliance with medication regimen. Uses 2 different pharmacies to fill her medications with 3-4 different providers listed as prescribers including myself from her last hospitalization. Stated to me that her psych provider adjusted her metoprolol to 150 mg at night- time. She has not seen her PCP since July per Epic. Multiple phone conversations noted but unable to see specific notes. Will adjust medication list appropriately upon discharge and send discharge summary to Isa Hudson PA-C that patient sees for Primary Care.
[2024-11-23 14:33] LABS: GLUCOSE, URINE (UA) 1+ (NEGATIVE); LEUKOCYTE ESTERASE ,URINE Negative (NEGATIVE); URINE, BLOOD Negative (NEGATIVE)
[2024-11-23 14:41] LABS: AMPHETAMINE SCREEN,URINE POSITIVE (NEGATIVE); CANNABINOID SCREEN,URINE NEGATIVE (NEGATIVE); COCAIN SCREEN,URINE NEGATIVE (NEGATIVE); METHADONE URINE SCREEN NEGATIVE (NEGATIVE); METHAMPHETAMINES SCREEN,URINE POSITIVE (NEGATIVE); OXYCODONE URINE SCREEN NEGATIVE (NEGATIVE); TRICYCLIC ANTIDEPRESSANTS URIN NEGATIVE (NEGATIVE)
[2024-11-23] MEDS: LASIX IVP SCH (17:02)
[2024-11-24 05:37] LABS: IMMATURE GRANULOCYTE # (AUTO) 0.0 (0.0-1.0); IMMATURE GRANULOCYTE % (AUTO) 0.3 % (0.0-5.0); RDW COEFFICIENT OF VARIATION 15.3 % (11.6-14.8)
[2024-11-24 05:51] LABS: CREATININE 0.91 mg/dL (0.60-1.30)
--- NOTE | 2024-11-24 08:57 | DCSUM ---
Admission Date Admission Date: 11/22/24 Discharge Date Discharge Date: 11/24/24 Admission Diagnosis Admission Diagnosis: 1. Acute CHFrEF Exacerbation 2. HTN 3. HLD 4. COPD 5. GERD 6. Methamphetamine abuse Discharge Diagnosis Discharge Diagnosis: 1. Acute CHFrEF Exacerbation - Improved 2. HTN - chronic, stable 3. HLD - chronic, stable 4. COPD - chronic, stable 5. GERD - chronic, stable 6. Methamphetamine abuse Hospital Provider Hospital [facility]AL[facility] Summary of History and Physical Summary of History and Physical: 54 yo female with pmh of CHFrEF, HTN, HLD, GERD, and methamphetamine abuse presented to the ER with complaints of shortness of breath. States she was seen at [facility] approx 3 days ago cause her inhaler and neb treatments were not effective and once she told them she had used meth they dismissed her. Per records, there is no record of her being at [facility]. States that SOB has continued to worsen, has been taking her meds occasionally but not daily, and her nebs don't seem to be helping anymore. Admits to using meth a few days ago in attempt to help "open her up like it used to" but was not helpful. Denies any chest pain, fever, or other symptoms. Does report worsening lower extremity edema. Found to have BNP of 6000. Chest xray clear. Other labs unremarkable. Maintaining O2 sat above 90% on RA. Patient does have some accessory muscle use but is able to converse without difficulty. Of note, patient's diuretics have not been filled since discharge date of last admission in September. She was prescribed 1 month supply with no refills and has not seen PCP. Admitted to Med/Surg Observation. Hospital Course Subjective: During stay, patient was treated for CHF exacerbation. Started diuresis with lasix 40 mg Q8H. 1800 fluid restriction, Strict I&O, and duonebs Q4H. Echo during stay on 09/2024 showed EF of 27% with hypokinetic motion. Has not seen Cardiology and is supposedly scheduled to see them in the near future at [facility]. 11/23/24 Patient more lethargic today but will wake up when stimulated. Has required 2L of oxygen continuously. Had episode of refusing to urinate and had to encourage patient to urinate or catheter would be required due to >600mL in bladder. UDS was obtained following this and was positive for benzos (that she is not prescribed and has not received while in the hospital), amphetamines, and methamphetamines. Stopped her percocet and promethazine after lethargy began. Pharmacies were contacted and patient had not filled promethazine as she previously told other nurses she takes with her percocet. Has refused to follow fluid restriction orders and stated to RNs "Are you fucking idiots?" Brought to this providers attention by staff that patient stated she did not want her chart sent to her PCP to reveal her methamphetamine use because her PCP will no longer prescribe her opiates. Drug screen ordered and will be sure to PCP is made aware of this issue as well as patient's noncompliance with medication regimen. Uses 2 different pharmacies to fill her medications with 3-4 different providers listed as prescribers including myself from her last hospitalization. Stated to me that her psych provider adjusted her metoprolol to 150 mg at night- time. She has not seen her PCP since July [facility]. Multiple phone conversations noted but unable to see specific notes. Will adjust medication list appropriately upon discharge and send discharge summary to Isa Hudson PA-C that patient sees for Primary Care. Was seen at another hospital under the name of Dominique Van as well. 11/24/24 This am patient's lung sounds are clear and air movement is more appropriate. No edema present to BLE. Discussed that there is no point in her staying in the hospital if she was going to be noncompliant with orders to improve overall condition. Discussed that she is not filling medications she is supposed to be taking thus causing her to return to the hospital. States "then just fucking discharge me" Has been requiring oxygen of 2L. 3 step oximetry obtained and sats immediately dropped to 88% while conversing. Orders sent to home oxygen company for continuous 2L and portable tank. Sent RX for duonebs and refilled heart failure medications. Appearance: Pleasant, No Apparent Distress and Alert HEENT: MMM, Supple and No JVD CVS: No Murmur Abdomen: Soft, Non-Tender and No Distention Respiratory: No Dyspnea Extremities: No Edema Vital Signs: Most Recent Vital Signs Temperature 97.1 F L 11/24/24 05:33 Temperature Source Temporal Artery Scan 11/24/24 05:33 Temperature Source Temporal Artery Scan 11/22/24 12:30 Pulse Rate 68 11/24/24 05:33 Respiratory Rate 22 H 11/24/24 05:33 Blood Pressure 125/73 11/24/24 05:33 Blood Pressure Mean 90 11/24/24 05:33 Blood Pressure Right Arm 160/91 11/22/24 16:28 Blood Pressure Location Right Arm 11/24/24 05:33 Blood Pressure Position Supine 11/24/24 05:33 O2 Sat by Pulse Oximetry 94 L 11/24/24 05:33 Oxygen Delivery Method Nasal Cannula 11/24/24 07:00 Oxygen Flow Rate 2 11/24/24 05:33 Height 5 ft 2 in 11/22/24 16:28 Weight 85.9 kg 11/24/24 05:42 Telemetry Type Remote Telemetry 11/24/24 01:00 Telemetry Monitoring Continues 11/24/24 01:00 Telemetry Heart Rate 70 11/24/24 01:00 Telemetry SPO2 96 11/24/24 01:00 EKG LA Interval 0.13 11/24/24 01:00 EKG QRS Interval 0.08 11/24/24 01:00 Telemetry Strip Reading SR 11/24/24 01:00 Lab Results Last 24 Hours: 11/24/24 11/23/24 05:16 14:20 WBC 9.59 RBC 4.68 Hgb 12.6 Hct 41.5 MCV 88.7 MCH 26.9 L MCHC 30.4 L RDW Coeff of Juvencio 15.3 H Plt Count 257 Immature Gran % (Auto) 0.3 Neut % (Auto) 57.1 Lymph % (Auto) 34.0 [place] % (Auto) 7.3 Eos % (Auto) 0.5 Baso % (Auto) 0.8 Neut # (Auto) 5.5 Lymph # (Auto) 3.3 [place] # (Auto) 0.7 Eos # (Auto) 0.1 Baso # (Auto) 0.1 Immature Gran # (Auto) 0.0 Sodium 144.4 Potassium 3.69 Chloride 101.6 Carbon Dioxide 36.5 H Anion Gap 9.99 BUN 30.2 H Creatinine 0.91 Estimated GFR (MDRD) 64.00 BUN/Creatinine Ratio 33.18 Glucose 114.1 H Calcium 9.27 Total Bilirubin 0.37 AST 20.1 ALT 24.4 Alkaline Phosphatase 63.9 Total Protein 6.42 Albumin 3.54 Globulin 2.88 Albumin/Globulin Ratio 1.22 Urine Color Yellow Urine Clarity Clear Urine pH 6.0 Ur Specific [place] 1.015 Urine Protein Negative Urine Glucose (UA) 1+ H Urine Ketones Negative Urine Blood Negative Urine Nitrite Negative Urine Bilirubin Negative Urine Urobilinogen 0.2 Ur Leukocyte Esterase Negative Urine Opiates Screen Negative Ur Oxycodone Screen Negative Urine Methadone Screen Negative Ur Barbiturates Screen Negative U Tricyclic Antidepress Negative Ur Phencyclidine Scrn Negative Ur Amphetamine Screen Positive H U Methamphetamines Scrn Positive H U Benzodiazepines Scrn Positive H Urine Cocaine Screen Negative U Cannabinoids Screen Negative Discharge Instructions Discharge Planning: Discharge Planning > 40 minutes If patient is discharged with left ventricular systolic dysfunction: yes, not newly diagnosis. Discharged with a beta syed? yes Discharged with an pancho/arb? yes Discharge Medications: Medications at Discharge (Home Meds & RX) albuterol sulfate 90 mcg/actuation aerosol inhaler 2 puff inhalation Q4H PRN shortness of breath or wheezing 07/15/24 amlodipine 10 mg tablet (Norvasc) 10 mg PO QDAY 07/15/24 aspirin 81 mg tablet,delayed release 81 mg PO QDAY 07/15/24 atorvastatin 40 mg tablet 40 mg PO QHS 07/15/24 clopidogrel 75 mg tablet (Plavix) 75 mg PO QDAY 07/15/24 gabapentin 600 mg tablet 600 mg PO TID 07/15/24 lisinopril 40 mg tablet 40 mg PO QDAY 07/15/24 oxycodone-acetaminophen 10 mg-325 mg tablet (Percocet) 1 tab PO Q6HR PRN moderate pain 07/15/24 paroxetine HCl 40 mg tablet 40 mg PO QAM 07/15/24 solifenacin 10 mg tablet (Vesicare) 10 mg PO QDAY 07/15/24 budesonide-formoterol HFA 160 mcg-4.5 mcg/actuation aerosol inhaler (Symbicort) 2 puff inhalation BID 09/23/24 ergocalciferol (vitamin D2) 1,250 mcg (50,000 unit) capsule 1,250 mcg PO WEEKLY 09/23/24 empagliflozin 10 mg tablet (Jardiance) 10 mg PO DAILY #30 tabs 11/24/24 ipratropium 0.5 mg-albuterol 3 mg (2.5 mg base)/3 mL nebulization soln 3 ml NEB RTQ4H PRN Shortness Of Breath Or Wheezing #90 mL 11/24/24 metoprolol succinate 100 mg tablet,extended release 24 hr 100 mg PO QPM #30 tabs 11/24/24 spironolactone 25 mg tablet 25 mg PO DAILY #30 tabs 11/24/24 torsemide 20 mg tablet 20 mg PO QDAY #30 tabs 11/24/24 Discharge Plan Discharge Discharge Orders: Discharge Patient (ONCE); Ordered 11/24/24 Ordered By: KANDI CERNA Activity Restrictions/Additional Instructions: Diagnosis: Congestive Heart Failure Exacerbation, Noncompliance with medical treatment Diet: 2L fluid restriction, low salt diet Activity: as tolerated Oxygen: you are requiring 2L at all times Medications: [facility] * Duonebs - may take every 4 hours as needed * Refills have been sent for your other medications that have not been filled since your last hospitalization 09/2024 Follow-up with primary care provider. Instructions: Heart Failure (GEN), Fluid Restriction (GEN) Patient Disposition: HOME SELF-CARE Prescriptions: New ipratropium-albuterol 0.5 mg-3 mg(2.5 mg base)/3 mL Solution For Nebulization 3 ml NEB RTQ4H PRN (Reason: Shortness Of Breath Or Wheezing) Qty: 90 0RF Continued budesonide-formoterol [Symbicort] 160-4.5 mcg/actuation HFA aerosol inhaler 2 puff inhalation BID ergocalciferol (vitamin D2) 1,250 mcg (50,000 unit) capsule 1,250 mcg PO WEEKLY torsemide 20 mg tablet 20 mg PO QDAY Qty: 30 0RF spironolactone 25 mg Tablet 25 mg PO DAILY Qty: 30 0RF Jardiance 10 mg Tablet 10 mg PO DAILY Qty: 30 0RF albuterol sulfate 90 mcg/actuation HFA aerosol inhaler 2 puff inhalation Q4H PRN (Reason: shortness of breath or wheezing) amlodipine [Norvasc] 10 mg tablet 10 mg PO QDAY aspirin 81 mg tablet,delayed release (DR/EC) 81 mg PO QDAY atorvastatin 40 mg tablet 40 mg PO QHS clopidogrel [Plavix] 75 mg tablet 75 mg PO QDAY gabapentin 600 mg tablet 600 mg PO TID lisinopril 40 mg tablet 40 mg PO QDAY oxycodone-acetaminophen [Percocet] 10-325 mg tablet 1 tab PO Q6HR PRN (Reason: moderate pain) paroxetine HCl 40 mg tablet 40 mg PO QAM solifenacin [Vesicare] 10 mg tablet 10 mg PO QDAY Changed metoprolol succinate 100 mg tablet extended release 24 hr 100 mg PO QPM Qty: 30 0RF Rx Instructions: Takes daily in the pm (150mg. total) Discontinued metoprolol succinate 50 mg Tablet Extended Release 24 Hr 75 mg PO BID Qty: 60 0RF albuterol sulfate 2.5 mg /3 mL (0.083 %) solution for nebulization 2.5 mg inhalation Q6H PRN (Reason: shortness of breath or wheezing) Qty: 90 0RF promethazine 25 mg tablet 25 mg PO Q6H PRN (Reason: nausea) Rx Instructions: Pt reports she takes with her pain med metoprolol succinate 50 mg tablet extended release 24 hr 50 mg PO DAILY Rx Instructions: Takes in the evening loratadine [Claritin] 10 mg tablet 10 mg PO QDAY PRN (Reason: allergy symptoms) pantoprazole [Protonix] 40 mg tablet,delayed release (DR/EC) 40 mg PO QDAY cyclobenzaprine 10 mg tablet 30 mg PO BID PRN (Reason: muscle spasm) Did you review [place] [employer] for ALL controlled substances?: Yes Discussed opioids are addictive and Narcan is available by prescription or from pharmacy.: No Condition: Fair
[2024-11-24 10:18] VITALS: BP 107/70; PULSE 78; RESP 16; TEMP 96.5
== END 2024-11-24 11:05 | disposition home or self-care (01) ==
LOC: MEDSURG B 12:10 → ED 12:10 → MEDSURG B 16:30
PROVIDERS: ADMIT Hospitalist; ATTEND Nurse Practitioner Family
DX: I11.0 Hypertensive heart disease with heart failure; J44.9 Chronic obstructive pulmonary disease, unspecified; I50.21 Acute systolic (congestive) heart failure; F15.10 Other stimulant abuse, uncomplicated; K21.9 Gastro-esophageal reflux disease without esophagitis

== ENCOUNTER 2025-04-01 08:21 | Observation (INO) ==
[2025-04-01 08:30] VITALS: BMI 34.9
[2025-04-01] MEDS: DUONEB NEB STA ×2 (08:30→08:59)
--- NOTE | 2025-04-01 08:37 | ED.PDOC ---
General [facility] ED Provider: Dr. BALAJI MONTOYA MD Chief Complaint: Shortness of Air Stated Complaint: Patient is a 55-year-old female that reported to the emergency department for shortness of breath. Patient stated that this has been going on for the past few days. Patient stated that she has history of COPD and has been using her inhalers to include her Symbicort and has been using DuoNeb treatments every 4 hours. Patient stated that she has progressively gotten worse. Patient stated that she does smoke at least 1 pack of cigarettes daily. Patient stated that she has been sick recently with a productive cough. Patient stated that she might have been around other sick contacts. Patient stated that she has still been able to eat and drink but she just not felt well. Patient stated that she does not know if she has had any fever. Patient denied any chest pain, nausea, vomiting, diarrhea, dizziness, syncope, or any other acute symptoms. In the emergency department patient's tachycardic with a heart rate of 127 bpm. Patient's O2 sat is 98% on room air. Patient was breathing approximately 32 breaths/min. Patient's blood pressure is elevated at 179/111. Patient's GCS is 15. Patient has a past medical history of CHF, COPD, hypertension, hyperlipidemia, GERD, hypothyroidism, and migraines. Time Seen by Provider: 04/01/25 08:24 Mode of Arrival: Walk-In Information Source: Patient Exam Limitations: No limitations Nursing and Triage Documentation Reviewed and Agree: Yes Opioid Naive vs. Tolerant What is Opioid Naive?: *Opioid Naive implies the patient is not already taking opioids or not chronically receiving opioids on a daily basis. *PRN dosing is not "usually" associated with tolerance. *Patients are at higher risk of over-sedation and aspiration. What is Opioid Tolerant?: *Opioid Tolerance implies less than the expected response to an opioid. *Acquired tolerance is defined by the patient taking 60mg of oral morphine daily (or equianalgesic dose of another opioid) for 1 week or more. *Often associated with chronic pain. *May take more than usual dose to achieve desired pain control. Review of Systems Review Of Systems Constitutional: Reports No symptoms Respiratory: Reports Cough and Shortness of Breath All Other Systems: Reviewed and Negative PFSH PFSH Family History Mother Lung cancer FATHER Myocardial infarct Social History Smoking and tobacco status: Current every day smoker Tobacco type: cigarettes Smoking packs per day: 1 Smoking cigarettes per day: 20.0 Alcohol intake: never Substance use type: former substance user Carmen/hindu: N/A Special carmen needs: No Agree to transfusion: Yes Adopted: No Caregiver/support person: No Foster care: No Household members: other Housing: house Marital status: U UNKNOWN Lives independently: Yes Daycare: no daycare Number of children: 4 Highest education level completed: some college, no degree Financial difficulty paying for basics: very hard service: No long term: No Current occupational status: disabled History of recent travel: No Current gender identity: female Seatbelt use: sometimes Helmet use: Yes Drives intoxicated or rides with intoxicated driver salesman: No Current diet type/program: regular Working smoke detector in home: Yes Fire extinguisher in home: Yes Carbon monoxide detector in home: No Firearms in home: No What type of physical activity do you participate in?: none Female Reproductive History Menstrual Hx Hysterectomy: Yes Hx Tubal Ligation: No Physical Exam Physical Exam Appearance: Reports Ill-appearing (Patient appears short of breath and can only talking in 3-4 word sentences. ) and Obese Ill-appearing: Moderate Pain Distress: None Eyes: Reports LUIS EDUARDO, EOMI and Conjunctiva clear ENT: Reports Nose normal and Oropharynx normal; Denies Erythema Neck: Supple Respiratory: Reports Breath sounds diminished (Breath sounds diminished bilaterally in the lower and midlung taylor.), Crackles, Wheezes (Mild wheezing heard in the middle and lower lung taylor bilaterally.), Retractions and Other (Breath sounds are markedly diminished with markedly diminished air movement. Patient has wheezes and crackles with scattered rhonchi throughout. No definite asymmetry. ) Cardiovascular: Reports Pulses normal and Tachycardia (Apical pulse of 120 bpm.) GI/: Reports Soft, Nontender, Bowel sounds normal and Other (Abdomen is soft, obese, and protuberant but not distended. Normoactive bowel sounds. Not evaluated for masses or megaly. No rebound tenderness to exam.) Musculoskeletal: Reports Normal strength, ROM intact, No edema and No calf tenderness Skin: Reports Dry, Normal color and Pale Neurological: Reports Sensation intact, Motor intact, Reflexes intact, Cranial nerves intact, Alert and Oriented Psychiatric: Reports Affect appropriate and Mood appropriate Physician Progress Note Physician Progress Note: Patient is a 55-year-old female that reported to the emergency department for shortness of breath. Patient stated that this has been going on for the past few days. Patient stated that she has history of COPD and has been using her inhalers to include her Symbicort and has been using DuoNeb treatments every 4 hours. Patient stated that she has progressively gotten worse. Patient stated that she does smoke at least 1 pack of cigarettes daily. Patient stated that she has been sick recently with a productive cough. Patient stated that she might have been around other sick contacts. Patient stated that she has still been able to eat and drink but she just not felt well. Patient stated that she does not know if she has had any fever. Patient denied any chest pain, nausea, vomiting, diarrhea, dizziness, syncope, or any other acute symptoms. In the emergency department patient's tachycardic with a heart rate of 127 bpm. Patient's O2 sat is 98% on room air. Patient was breathing approximately 32 breaths/min. Patient's blood pressure is elevated at 179/111. Patient's GCS is 15. Patient has a past medical history of CHF, COPD, hypertension, hyperlipidemia, GERD, hypothyroidism, and migraines. - It appears patient is in the acute COPD exacerbation. - Will give the patient IV methylprednisolone 125 mg for her COPD exacerbation and 2 DuoNeb treatments. - Patient meets sepsis criteria with a elevated heart rate of 122 bpm, respiration rate 32, temperature 96.8 F, and source of pneumonia. Will give IV lactated Ringer's 1 L bolus for sepsis. - Will order blood cultures and give antibiotics see below. - Will give the patient IV ceftriaxone 1 g and IV doxycycline 100 mg to treat for typical and atypical pathogens for patient's pneumonia/COPD exacerbation for sepsis. - Will order an ABG. - Will order an EKG, troponin, proBNP, and a chest x-ray to rule out ACS as a possible cause for patient's shortness of breath. - Will order baseline labs and urinalysis. - Chest x-ray shows a consolidation of the right lower lung field. I have already given the patient treatment for pneumonia (please see above). - Will be very judicial with the fluids in this patient's sepsis treatment as the patient does have a history of congestive heart failure and we do not want to iatrogenically fluid overload this patient. - EKG shows sinus tachycardia with a rate of 122 bpm. Minimal voltage criteria for left ventricular hypertrophy noted. ST and T wave abnormality consider lateral ischemia noted. No STEMI noted. EKG interpreted by ER physician. - BNP is elevated. Will treat patient CHF exacerbation with IV Lasix 40 mg. Will restrict large boluses due to patient's congestive heart failure as mentioned above. - Troponin is negative. - Will contact hospitalist for admission for this patient.. - Spoke to Nicole GIFFORD which is her hospitalist here at [facility] and discussed patient's COPD exacerbation, sepsis pneumonia, and CHF exacerbation. Discussed current treatments and that we would not be given multiple boluses of fluid due to patient's CHF exacerbation in an effort to not to fluid overload this patient. Of discussed the patient has had IV ceftriaxone 1 g and IV doxycycline 100 mg for sepsis pneumonia. Of discussed current DuoNeb treatments and steroids for COPD exacerbation. Discussed patient's current stable vital signs. Nicole has agreed to accept this patient for observation to the hospital. Critical Care Note Critical Care Note Total Critical Care Time (mins): 45 Comments: Critical Care Procedure Note Authorized and Performed by: Dr. Balaji Montoya MD, MPH Total critical care time: 45 minutes Due to a high probability of clinically significant, life threatening deterioration, the patient required my highest level of preparedness to intervene emergently and I personally spent this critical care time directly and personally managing the patient. This critical care time included obtaining a history; examining the patient; pulse oximetry; ordering and review of studies; arranging urgent treatment with development of a management plan; evaluation of patient's response to treatment; frequent reassessment; and, discussions with other providers. This critical care time was performed to assess and manage the high probability of imminent, life-threatening deterioration that could result in multi-organ failure. It was exclusive of separately billable procedures and treating other patients and teaching time. Please see MDM section and the rest of the note for further information on patient assessment and treatment. Course Course 04/01/25 08:34 04/01/25 08:34 Orders, Labs, Meds: Lab Review 04/01/25 04/01/25 04/01/25 08:34 08:38 08:45 WBC 11.09 H RBC 5.27 Hgb 14.0 Hct 46.7 MCV 88.6 MCH 26.6 L MCHC 30.0 L RDW Coeff of Juvencio 15.2 H Plt Count 263 Immature Gran % (Auto) 0.3 Neut % (Auto) 69.2 Lymph % (Auto) 23.5 Elbert % (Auto) 5.9 Eos % (Auto) 0.5 Baso % (Auto) 0.6 Neut # (Auto) 7.7 H Lymph # (Auto) 2.6 Elbert # (Auto) 0.7 Eos # (Auto) 0.1 Baso # (Auto) 0.1 Immature Gran # (Auto) 0.0 Puncture Site Rrad Base Excess 5.2 H O2 Saturation 94.8 ABG pH 7.45 ABG pCO2 42.0 ABG pO2 71.0 L ABG HCO3 29.2 H ABG Total CO2 30.5 H Roberto Test Pos Hemoglobin 1.0 Oxyhemoglobin 93.3 L Carboxyhemoglobin 3.3 H Total Hemoglobin 11.5 L FiO2 % 21.0 Sodium 145.2 H Potassium 4.17 Chloride 104.3 Carbon Dioxide 30.9 H Anion Gap 14.17 BUN 15.8 Creatinine 0.84 Estimated GFR (MDRD) 70.00 BUN/Creatinine Ratio 18.80 Glucose 131.3 H Lactic Acid 1.55 Calcium 9.42 Magnesium 1.89 Total Bilirubin 1.03 AST 23.3 ALT 27.3 Alkaline Phosphatase 78.1 Troponin I 0.022 NT-Pro-B Natriuret Pep 97015 H Total Protein 7.97 Albumin 4.45 Globulin 3.52 Albumin/Globulin Ratio 1.26 Procalcitonin < 0.05 Influ A Molecular Assay Negative by naat Influ B Molecular Assay Negative by naat RSV Antigen Pending SARS CoV-2 RNA Rapid ERIC Negative Orders Category Date Time Status ABG DRAW REQUEST Stat CARDIO 04/01/25 08:31 Completed EKG-(ED & IP/OBS ONLY) Stat CARDIO 04/01/25 08:24 Completed NEBULIZER TREATMENT Stat CARDIO 04/01/25 08:25 Completed NEBULIZER TREATMENT Stat CARDIO 04/01/25 08:37 Completed ABG COOX Stat LAB 04/01/25 08:45 Completed BLOOD CULTURE (ED ONLY) Stat LAB 04/01/25 08:56 Received CBC W/ AUTO DIFF Stat LAB 04/01/25 08:34 Completed CMP [COMPREHENSIVE METABOLIC PANEL] Stat LAB 04/01/25 08:34 Completed COVID [SARS COV-2 RNA RAPID ERIC] Stat LAB 04/01/25 08:38 Results D-DIMER Stat LAB 04/01/25 08:34 Received FLU A & B MOLECULAR [FLU A/B MOLECULAR] Stat LAB 04/01/25 08:38 Results LACTIC ACID Stat LAB 04/01/25 08:34 Completed MAGNESIUM Stat LAB 04/01/25 08:34 Completed NT-PROBNP(ED) Stat LAB 04/01/25 08:34 Completed PROCALCITONIN Stat LAB 04/01/25 08:34 Completed RAPID STREP SCREEN [MOLECULAR GROUP A STREP] Stat LAB 04/01/25 08:38 Completed RSV Stat LAB 04/01/25 08:38 Results TROPONIN I Stat LAB 04/01/25 08:34 Completed URINALYSIS C & S IF INDICATED Stat LAB 04/01/25 08:24 Uncollected Ceftriaxone 1 gm Vial [Rocephin 1 gm Vial] Meds 04/01/25 08:39 Discontinued 1 gm IVP ONCE ONE Doxycycline Hyclate Inj [Doxy-100] 100 mg Meds 04/01/25 08:39 Active 0.9 % Sodium Chloride [Sodium Chloride 100Ml] 100 ml IV ONCE Ipratropium/Albuterol Neb [Duoneb] Meds 04/01/25 08:24 Discontinued 3 ml NEB ONCE STA Ipratropium/Albuterol Neb [Duoneb] Meds 04/01/25 08:37 Discontinued 3 ml NEB ONCE STA Methylprednisolone Sod Succ/Pf [Solu-Medrol 125 mg] Meds 04/01/25 08:24 Discontinued 125 mg IVP ONCE ONE Ringers Lactated Solution [Lactated Ringers] 1,000 ml Meds 04/01/25 08:51 Active IV BOLUS CHEST, 1V AP ONLY Stat RADS 04/01/25 08:24 Completed Medications Generic Name Dose Route Start Last Admin Trade Name Freq PRN Reason Stop Dose Admin Doxycycline Hyclate 100 mg/ 100 mls @ 50 mls/hr 04/01/25 08:39 04/01/25 09:20 Sodium Chloride IV 04/01/25 10:38 50 mls/hr ONCE ONE Administration Lactated Ringer's 1,000 mls @ 1,000 mls/hr 04/01/25 08:51 Lactated Ringers IV 04/01/25 09:50 BOLUS ONE Discontinued Medications Generic Name Dose Route Start Last Admin Trade Name Meagan PRN Reason Stop Dose Admin Albuterol/Ipratropium 3 ml 04/01/25 08:24 04/01/25 08:30 Ipratropium/Albuterol Vial.[facility] 04/01/25 08:25 3 ml ONCE STA Administration Albuterol/Ipratropium 3 ml 04/01/25 08:37 04/01/25 08:59 Ipratropium/Albuterol Vial.[facility] 04/01/25 08:38 3 ml ONCE STA Administration Ceftriaxone Sodium 1 gm 04/01/25 08:39 04/01/25 09:19 Ceftriaxone 1 Gm Vial IVP 04/01/25 08:40 1 gm ONCE ONE Administration Methylprednisolone Sodium Succinate 125 mg 04/01/25 08:24 04/01/25 08:39 Methylprednisolone Sod Succ/Pf 125 Mg/2 Ml Vial IVP 04/01/25 08:25 125 mg ONCE ONE Administration Vital Signs: Temp Pulse Resp BP Pulse Ox 04/01/25 08:23 96.8 F L 133 H 38 H 179/111 H 97 Discharge Plan Discharge Patient Disposition: PLACED OBSERVATION Discharge Problem: Sepsis due to pneumonia, Acute exacerbation of chronic obstructive pulmonary disease, CHF exacerbation, Essential hypertension Did you review [place] [employer] for ALL controlled substances?: Not Applicable ED Provider: BALAJI MONTOYA Condition: Stable
[2025-04-01] MEDS: SOLU-MEDROL 125 MG IVP ONE (08:39)
[2025-04-01 08:43] LABS: IMMATURE GRANULOCYTE # (AUTO) 0.0 (0.0-1.0); IMMATURE GRANULOCYTE % (AUTO) 0.3 % (0.0-5.0); RDW COEFFICIENT OF VARIATION 15.2 % (11.6-14.8)
--- NOTE | 2025-04-01 08:53 | DI ---
EXAM: CHEST RADIOGRAPH TECHNIQUE: Single frontal chest radiograph. HISTORY: Shortness of breath. COMPARISON: 11/22/24 FINDINGS: The lungs are clear. The heart size is normal. The osseous structures are unremarkable. IMPRESSION: 1. No acute disease.
[2025-04-01 09:01] LABS: CREATININE 0.84 mg/dL (0.60-1.30)
[2025-04-01 09:06] LABS: MOLECULAR FLU A NEGATIVE BY NAAT (NEGATIVE); MOLECULAR FLU B NEGATIVE BY NAAT (NEGATIVE); SARS COV-2 RNA RAPID NAAT NEGATIVE (NEGATIVE)
[2025-04-01] MEDS: ROCEPHIN 1 GM VIAL IVP ONE (09:19)
[2025-04-01] MEDS: DOXY-100 100 MG in SODIUM CHLORIDE 100ML 100 ML IV ONE (09:20)
[2025-04-01 09:24] LABS: ABG O2 HGB 93.3 % (95-100); ABG PCO2 42.0 mmHg (35-45); ABG PH 7.45 (7.35-7.45); ABG PO2 71.0 mmHg (85-100); BEecf 5.2 (-2.0-3.0); FI02 21.0 %; HCO3 29.2 (21-28); TCO2 30.5 (19-24)
[2025-04-01 09:45] LABS: RSV MOLECULAR NEGATIVE BY NAAT (NEGATIVE)
[2025-04-01] MEDS: OMNIPAQUE 350 MG/ML 100ML IVP ONE (09:54)
[2025-04-01 10:45] LABS: GLUCOSE, URINE (UA) Negative (NEGATIVE); LEUKOCYTE ESTERASE ,URINE Negative (NEGATIVE); URINE, BLOOD Negative (NEGATIVE)
--- NOTE | 2025-04-01 10:50 | CT ---
EXAM: CTA CHEST PE PROTOCOL HISTORY: SOB with elevated D-dimer TECHNIQUE: CTA acquisition of the chest from the thoracic inlet to the upper abdomen following IV contrast administration timed to filling of the pulmonary artery. IV Contrast: 100 mL of Omnipaque 350 administered. 3D/MIP/VR images were utilized. CT Dose Reduction Techniques Employed: Yes. COMPARISON: December 27, 2020. FINDINGS: No intraluminal filling defect is seen within the main pulmonary artery or its major segmental branches to suggest pulmonary embolism Negative for focal aneurysm, intimal dissection, or mural disruption involving the thoracic aorta. Atherosclerotic calcifications are demonstrated within the visualized arterial structures, including the [place] coronary arteries. There are mild findings of pulmonary emphysema at the bilateral lung apices. There is moderate prominence of the pulmonary vasculature, consistent with pulmonary vascular congestion There is a small right pleural effusion No pathologically enlarged thoracic lymph node is identified Limited scans through the upper abdomen are grossly unremarkable.. There is generalized osseous demineralization. Chronic degenerative changes are demonstrated throughout the visualized orthopedic structures. IMPRESSION: Negative for CTA evidence to suggest pulmonary embolism Emphysema Pulmonary vascular congestion Right pleural effusion All CT scans are performed using dose optimization techniques as appropriate to the performed exam and include at least one of the following: Automated exposure control, adjustment of the mA and/or kV according to size, and the use of iterative reconstruction technique.
[2025-04-01 10:51] LABS: SQUAMOUS EPITHELIAL CELL,UR 20-30 (0-5)
[2025-04-01] MEDS: LACTATED RINGERS 1,000 ML IV ONE (11:25)
[2025-04-01] MEDS: LASIX IVP STA (11:28)
[2025-04-01] MEDS: DUONEB NEB SCH (11:57)
[2025-04-01] MEDS: MAGNESIUM SULF 2 G/50 ML BAG 2 GM/50 ML PIGGYBACK IV STA (11:57)
--- NOTE | 2025-04-01 13:19 | PCM ---
Date of Service Date Seen by Provider: 04/01/25 Time Seen by Provider: 12:00 Admit Day/Time Admission Date: 04/01/25 Admission Time: 10:55 Reason for Admission Chief Complaint: COPD & CHF EXACERBATION, CAP, HTN Hospital Provider Hospital Provider: ROBERTO CARLOS RIVERO PA-C, [facility] History of Present Illness History of Present Illness: Patient is a 55 year old female with pmhx of COPD, systolic heart failure, hypertension, hypothyroidism, osteoporosis, GERD, history of drug abuse who presented to ER with worsening SOB. Patient states she is to wear O2 2L 14/11. She has been worsening over last 4 days. When she arrived she was tachy and tachypneic near 40 RR. She was given steroids, duonebs, abx. Her work of breathing improved, however still having conversational dyspnea, and obvious retractions once arrived to the floor. BNP above baseline. She was given fluids due to meeting SIRS. CXR negative. CTA ruled out PE. Negative flu, RSV, and covid swabs. Admitted to [facility]. Case Discussed With Case Discussed With: Patient's case was discussed with the ER Physicians, Dr. Hernandez. [facility] Family History Mother Lung cancer FATHER Myocardial infarct Social History Smoking and tobacco status: Current every day smoker Tobacco type: cigarettes Smoking packs per day: 1 Smoking cigarettes per day: 20.0 Alcohol intake: never Substance use type: former substance user Carmen/druze: N/A Special carmen needs: No Agree to transfusion: Yes Adopted: No Caregiver/support person: No Foster care: No Household members: other Housing: house Marital status: U UNKNOWN Lives independently: Yes Daycare: no daycare Number of children: 4 Highest education level completed: some college, no degree Financial difficulty paying for basics: very hard service: No MCFP: No Current occupational status: disabled History of recent travel: No Current gender identity: female Seatbelt use: sometimes Helmet use: Yes Drives intoxicated or rides with intoxicated delivery driver/customer service: No Current diet type/program: regular Working smoke detector in home: Yes Fire extinguisher in home: Yes Carbon monoxide detector in home: No Firearms in home: No What type of physical activity do you participate in?: none Allergies Allergies Allergy/AdvReac Type Severity Reaction Status Date / Time codeine AdvReac RASH Verified 11/22/24 12:30 Sulfa (Sulfonamide AdvReac Rash Verified 11/22/24 12:30 Antibiotics) Current Medications Home Medications Albuterol/Ipratropium (Ipratropium/Albuterol Vial.Neb) 3 ml NEB RTQ4H [facility] Last Admin: 04/01/25 11:57 Dose: 3 ml Amlodipine Besylate (Amlodipine Besylate 5 Mg Tablet) 10 mg PO DAILY [facility] Aspirin (Aspirin 81 Mg Tablet.) 81 mg PO DAILY [facility] Atorvastatin Calcium (Atorvastatin Calcium 20 Mg Tablet) 40 mg PO BEDTIME [facility] Budesonide/Formoterol Fumarate (Budesonide/Formoterol Fumarate 160/4.5 Mcg Inhaler) 2 puff IH BID [facility] Clopidogrel Bisulfate (Clopidogrel Bisulfate 75 Mg Tablet) 75 mg PO DAILY [facility] Doxycycline Hyclate (Doxycycline Hyclate 100 Mg Capsule) 100 mg PO Q12HR [facility] Stop: 04/06/25 09:01 Empagliflozin (Empagliflozin 10 Mg Tablet) 10 mg PO DAILY [facility] Furosemide (Furosemide Inj 40 Mg/4 Ml Vial) 40 mg IVP ONCE ONE Stop: 04/01/25 18:01 Gabapentin (Gabapentin 300 Mg Capsule) 600 mg PO TID [facility] CEFTRIAXONE/D5W 1 GM PREMIX (Rocephin 1 Gm/50 Ml D5w) 1 gm in 50 mls @ 100 mls/hr IV DAILY [facility] Stop: 04/05/25 08:59 Lisinopril (Lisinopril 40 Mg Tablet) 40 mg PO DAILY [facility] Methylprednisolone Sodium Succinate (Methylprednisolone Sod Succ/Pf 40 Mg/Ml Vial) 40 mg IVP Q8HR [facility] Metoprolol Succinate (Metoprolol Succinate 50 Mg Tab.Er.24h) 100 mg PO QPM [facility] Metoprolol Succinate (Metoprolol Succinate 50 Mg Tab.Er.24h) 50 mg PO QPM [facility] Nicotine (Nicotine 14 Mg Patch.Td24) 1 patch TD DAILY [facility] Nystatin (Nystatin Susp 500,000 Units/5 Ml Cup) 5 ml PO ACHS2 [facility] Nystatin (Nystatin 15 Gm Powder) 1 applic TP BID [facility] Oxycodone/Acetaminophen (Oxycodone/Acetaminophen 10/325 Mg Tablet) 1 tab PO QID [facility] Paroxetine HCl (Paroxetine Hcl 20 Mg Tablet) 40 mg PO QAM [facility] Solifenacin (Solifenacin Succinate 5 Mg Tablet) 10 mg PO DAILY [facility] Torsemide (Torsemide 20 Mg Tablet) 20 mg PO DAILY [facility] albuterol sulfate 90 mcg/actuation aerosol inhaler 2 puff inhalation Q4H PRN shortness of breath or wheezing 07/15/24 [History Confirmed 04/01/25] amlodipine 10 mg tablet (Norvasc) 10 mg PO QDAY 07/15/24 [History Confirmed 04/01/25] aspirin 81 mg tablet,delayed release 81 mg PO QDAY 07/15/24 [History Confirmed 04/01/25] atorvastatin 40 mg tablet 40 mg PO QHS 07/15/24 [History Confirmed 04/01/25] clopidogrel 75 mg tablet (Plavix) 75 mg PO QDAY 07/15/24 [History Confirmed 04/01/25] gabapentin 600 mg tablet 600 mg PO TID 07/15/24 [History Confirmed 04/01/25] lisinopril 40 mg tablet 40 mg PO QDAY 07/15/24 [History Confirmed 04/01/25] oxycodone-acetaminophen 10 mg-325 mg tablet (Percocet) 1 tab PO QID moderate pain 07/15/24 [History Confirmed 04/01/25] paroxetine HCl 40 mg tablet 40 mg PO QAM 07/15/24 [History Confirmed 04/01/25] solifenacin 10 mg tablet (Vesicare) 10 mg PO QDAY 07/15/24 [History Confirmed 04/01/25] budesonide-formoterol HFA 160 mcg-4.5 mcg/actuation aerosol inhaler (Symbicort) 2 puff inhalation BID 09/23/24 [History Confirmed 04/01/25] ergocalciferol (vitamin D2) 1,250 mcg (50,000 unit) capsule 1,250 mcg PO WEEKLY 09/23/24 [History Confirmed 04/01/25] empagliflozin 10 mg tablet (Jardiance) 10 mg PO DAILY #30 tabs 11/24/24 [Rx Confirmed 04/01/25] ipratropium 0.5 mg-albuterol 3 mg (2.5 mg base)/3 mL nebulization soln 3 ml NEB RTQ4H PRN Shortness Of Breath Or Wheezing #90 mL 11/24/24 [Rx Confirmed 04/01/25] spironolactone 25 mg tablet 25 mg PO DAILY #30 tabs 11/24/24 [Rx Confirmed 04/01] torsemide 20 mg tablet 20 mg PO QDAY #30 tabs 11/24/24 [Rx Confirmed 04/01/25] albuterol sulfate 2.5 mg/3 mL (0.083 %) solution for nebulization 2.5 mg inhalation Q6H PRN wheezing 04/01/25 [History Confirmed 04/01/25] metoprolol succinate 100 mg tablet,extended release 24 hr 100 mg PO QPM 04/01/25 [History Confirmed 04/01/25] metoprolol succinate 50 mg tablet,extended release 24 hr 50 mg PO QPM 04/01/25 [History Confirmed 04/01/25] promethazine 25 mg tablet 25 mg PO QID 04/01/25 [History Confirmed 04/01/25] rizatriptan 10 mg tablet 10 mg PO DAILY PRN migraine headache 04/01/25 [History Confirmed 04/01/25] Opioid Naive vs. Tolerant Does Patient Take Opioids?: No Is Patient Opioid Naive?: Yes What is Opioid Naive?: *Opioid Naive implies the patient is not already taking opioids or not chronically receiving opioids on a daily basis. *PRN dosing is not "usually" associated with tolerance. *Patients are at higher risk of over-sedation and aspiration. Is Patient Opioid Tolerant?: No What is Opioid Tolerant?: *Opioid Tolerance implies less than the expected response to an opioid. *Acquired tolerance is defined by the patient taking 60mg of oral morphine daily (or equianalgesic dose of another opioid) for 1 week or more. *Often associated with chronic pain. *May take more than usual dose to achieve desired pain control. Review of Systems Constitutional: Denies Fever, Fatigue, Weakness or Loss of appetite Head: Reports Normocephalic and Atraumatic Cardiovascular: Reports Edema; Denies Chest pain Respiratory: Reports Cough, Shortness of air and Wheeze Gastrointestinal: Denies Nausea, Vomiting, Diarrhea, Abdominal pain or Melena Genitourinary: Denies Dysuria or Frequency Physical examination Most Recent Vital Signs: Most Recent Vital Signs Temperature 97.7 F 04/01/25 11:34 Temperature Source Temporal Artery Scan 04/01/25 11:34 Temperature Source Infrared 04/01/25 08:23 Pulse Rate 120 H 04/01/25 11:34 Respiratory Rate 22 H 04/01/25 11:34 Blood Pressure 179/111 H 04/01/25 08:23 Blood Pressure Right Arm 181/100 04/01/25 11:34 Blood Pressure Position Sitting 04/01/25 11:34 O2 Sat by Pulse Oximetry 100 04/01/25 12:11 Oxygen Delivery Method Nasal Cannula 04/01/25 12:11 Oxygen Flow Rate 2 04/01/25 12:11 Height 5 ft 2 in 04/01/25 11:34 Weight 86.8 kg 04/01/25 11:34 Telemetry Type Remote Telemetry 04/01/25 11:50 Telemetry Monitoring Continues 04/01/25 11:50 Telemetry Heart Rate 120 H 04/01/25 11:50 Telemetry SPO2 97 04/01/25 11:50 EKG UT Interval 0.11 L 04/01/25 11:50 EKG QRS Interval 0.07 04/01/25 11:50 Telemetry Strip Reading INITAL SINUS TACH 04/01/25 11:50 Appearance: Positive Alert and Oriented x3, Ill-Appearing and Other (+mild distress) HEENT: Positive Normocephalic and Atraumatic Chest/Lungs: Positive Symmetrical With Equal Breath Sounds and Wheezes (fatimah, mildly labored breathing, conversational dyspnea noted, retractions noted ) Heart: Positive RRR GI/: Positive Soft, Nontender, Bowel Sounds Normal and No Distention Extremities: Positive Edema (1+ edema fatimah ) Neurological: Positive Cranial Nerves Intact, Alert and Oriented Psychiatric: Positive Oriented x4, Appropriate Mood and Appropriate Affect Labs This Visit Labs This Visit: Labs This Visit 04/01/25 04/01/25 04/01/25 08:34 08:38 08:45 WBC 11.09 H RBC 5.27 Hgb 14.0 Hct 46.7 MCV 88.6 MCH 26.6 L MCHC 30.0 L RDW Coeff of [place]ven[place] 15.2 H Plt Count 263 Immature Gran % (Auto) 0.3 Neut % (Auto) 69.2 Lymph % (Auto) 23.5 [place] % (Auto) 5.9 Eos % (Auto) 0.5 Baso % (Auto) 0.6 Neut # (Auto) 7.7 H Lymph # (Auto) 2.6 [place] # (Auto) 0.7 Eos # (Auto) 0.1 Baso # (Auto) 0.1 Immature Gran # (Auto) 0.0 Puncture Site [employer]rad Base Excess 5.2 H O2 Saturation 94.8 ABG pH 7.45 ABG pCO2 42.0 ABG pO2 71.0 L ABG HCO3 29.2 H ABG Total CO2 30.5 H Roberto Test Pos Hemoglobin 1.0 Oxyhemoglobin 93.3 L Carboxyhemoglobin 3.3 H Total Hemoglobin 11.5 L FiO2 % 21.0 Sodium 145.2 H Potassium 4.17 Chloride 104.3 Carbon Dioxide 30.9 H Anion Gap 14.17 BUN 15.8 Creatinine 0.84 Estimated GFR (MDRD) 70.00 BUN/Creatinine Ratio 18.80 Glucose 131.3 H Lactic Acid 1.55 Calcium 9.42 Magnesium 1.89 Total Bilirubin 1.03 AST 23.3 ALT 27.3 Alkaline Phosphatase 78.1 Troponin I 0.022 NT-Pro-B Natriuret Pep 93677 H Total Protein 7.97 Albumin 4.45 Globulin 3.52 Albumin/Globulin Ratio 1.26 Procalcitonin < 0.05 D-Dimer 1112.89 H Urine Color Urine Clarity Urine pH Ur Specific [place] Urine Protein Urine Glucose (UA) Urine Ketones Urine Blood Urine Nitrite Urine Bilirubin Urine Urobilinogen Ur Leukocyte Esterase Ur Squamous Epith Cells Ur Transition Epith Cell Urine Mucus Influ A Molecular Assay Negative by naat Influ B Molecular Assay Negative by naat RSV Antigen Negative by naat SARS CoV-2 RNA Rapid ERIC Negative 04/01/25 10:12 WBC RBC Hgb Hct MCV MCH MCHC RDW Coeff of Juven[place]io Plt Count Immature Gran % (Auto) Neut % (Auto) Lymph % (Auto) [place] % (Auto) Eos % (Auto) Baso % (Auto) Neut # (Auto) Lymph # (Auto) [place] # (Auto) Eos # (Auto) Baso # (Auto) Immature Gran # (Auto) Puncture Site Base Excess O2 Saturation ABG pH ABG pCO2 ABG pO2 ABG HCO3 ABG Total CO2 Roberto Test Hemoglobin Oxyhemoglobin Carboxyhemoglobin Total Hemoglobin FiO2 % Sodium Potassium Chloride Carbon Dioxide Anion Gap BUN Creatinine Estimated GFR (MDRD) BUN/Creatinine Ratio Glucose Lactic Acid Calcium Magnesium Total Bilirubin AST ALT Alkaline Phosphatase Troponin I NT-Pro-B Natriuret Pep Total Protein Albumin Globulin Albumin/Globulin Ratio Procalcitonin D-Dimer Urine Color Yellow Urine Clarity Clear Urine pH 6.5 Ur Specific [place] 1.025 Urine Protein 1+ H Urine Glucose (UA) Negative Urine Ketones Negative Urine Blood Negative Urine Nitrite Negative Urine Bilirubin Negative Urine Urobilinogen 2.0 H Ur Leukocyte Esterase Negative Ur Squamous Epith Cells 20-30 Ur Transition Epith Cell 0-2 Urine Mucus 2+ Influ A Molecular Assay Influ B Molecular Assay RSV Antigen SARS CoV-2 RNA Rapid ERIC Microbiology This Visit 04/01/25 08:38 Throat Group A Strep Molecular Assay - Final Imaging Imaging: EXAM: CHEST RADIOGRAPH TECHNIQUE: Single frontal chest radiograph. HISTORY: Shortness of breath. COMPARISON: 11/22/24 FINDINGS: The lungs are clear. The heart size is normal. The osseous structures are unremarkable. IMPRESSION: 1. No acute disease. EXAM: CTA CHEST PE PROTOCOL HISTORY: SOB with elevated D-dimer TECHNIQUE: CTA acquisition of the chest from the thoracic inlet to the upper abdomen following IV contrast administration timed to filling of the pulmonary artery. IV Contrast: 100 mL of Omnipaque 350 administered. 3D/MIP/VR images were utilized. CT Dose Reduction Techniques Employed: Yes. COMPARISON: December 27, 2020. FINDINGS: No intraluminal filling defect is seen within the main pulmonary artery or its major segmental branches to suggest pulmonary embolism Negative for focal aneurysm, intimal dissection, or mural disruption involving the thoracic aorta. Atherosclerotic calcifications are demonstrated within the visualized arterial structures, including the [place] coronary arteries. There are mild findings of pulmonary emphysema at the bilateral lung apices. There is moderate prominence of the pulmonary vasculature, consistent with pulmonary vascular congestion There is a small right pleural effusion No pathologically enlarged thoracic lymph node is identified Limited scans through the upper abdomen are grossly unremarkable.. There is generalized osseous demineralization. Chronic degenerative changes are demonstrated throughout the visualized orthopedic structures. IMPRESSION: Negative for CTA evidence to suggest pulmonary embolism Emphysema Pulmonary vascular congestion Right pleural effusion Echo 02/10/25 Interpretation Summary Left ventricular systolic function is moderately decreased. Left ventricular ejection fraction appears to be 31 - 35%. The left ventricular cavity is mildly dilated. The following left ventricular wall segments are hypokinetic: mid anterior, apical anterior, mid inferior, basal inferoseptal, mid inferoseptal, mid anteroseptal, basal anterior, basal inferior and basal inferoseptal. Left ventricular diastolic function is consistent with (grade I) impaired relaxation. Normal right ventricular cavity size and systolic function noted. There is no significant (greater than mild) valvular dysfunction. Review Statement Review Statement: I have independently reviewed and interpreted the labs/EKGs/imaging that were ordered by the ER provider. I have reviewed all outside records that are available currently in our EMR including imaging/notes/labs from previous visits. Plan Plan: 1. Acute COPD exacerbation - abx/steroids/duonebs, wears 2L chronically. Give mag 2 gm over 20 minutes. 2. Combined heart failure - Patient last EF was about 31-35%. She has followed up with [facility] but states she has a hard time with transportation. States they ordered some "tests" but she's been unable to complete. She is on jardiance, spironolactone, and beta syed. Will request records. Will monitor fluid status as she was given fluids in ER. Will give another dose of IV lasix this evening. 3. Hypertension - hasn't had her meds today, will give now and reevaluate. 4. Hyperlipidemia - Cont home meds DVT Prophylaxis: Ambulation Time Spent: Greater than 80 minutes spent with patient, 50% of the time spent with this patient was devoted to counseling and coordination of care. [facility]in minutes spent discussing advance care planning. Patient wishes to be a DNR selective. Smoking Cessation: 3 minutes spent discussing smoking cessation. - wants nicotine patch Admit to: Obs Discussed Plan of Care with Dr. Nicole Faust. Medications Medication Orders: Medications Ordered Category Date Time Status Ipratropium/Albuterol Neb [Duoneb] Meds 04/01/25 11:50 Active 3 ml NEB RTQ4H Nystatin [Nystatin Oral Susp] Meds 04/01/25 12:00 Active 5 ml PO ACHS2 Nystatin [Nystop Powder] Meds 04/01/25 12:00 Active 1 applic TP BID
[2025-04-01] MEDS: NYSTOP POWDER TP SCH (14:32)
[2025-04-01] MEDS: SOLU-MEDROL 40 MG IVP SCH (14:32)
[2025-04-01] MEDS: NICODERM 14 MG TD SCH (14:32)
[2025-04-01] MEDS: NEURONTIN PO SCH (14:33)
[2025-04-01] MEDS: ASPIRIN EC PO SCH (14:33)
[2025-04-01] MEDS: NYSTATIN ORAL SUSP PO SCH (14:33)
[2025-04-01] MEDS: PAXIL PO SCH (14:34)
[2025-04-01] MEDS: VESICARE PO SCH (14:34)
[2025-04-01] MEDS: NORVASC PO SCH (14:35)
[2025-04-01] MEDS: JARDIANCE PO SCH (14:35)
[2025-04-01] MEDS: PLAVIX PO SCH (14:35)
[2025-04-01] MEDS: ZESTRIL PO SCH (14:36)
[2025-04-01] MEDS: PERCOCET 10-325 PO SCH (17:50)
[2025-04-01 18:42] LABS: AMPHETAMINE SCREEN,URINE NEGATIVE (NEGATIVE); CANNABINOID SCREEN,URINE NEGATIVE (NEGATIVE); COCAIN SCREEN,URINE NEGATIVE (NEGATIVE); METHADONE URINE SCREEN NEGATIVE (NEGATIVE); METHAMPHETAMINES SCREEN,URINE POSITIVE (NEGATIVE); OXYCODONE URINE SCREEN NEGATIVE (NEGATIVE); TRICYCLIC ANTIDEPRESSANTS URIN NEGATIVE (NEGATIVE)
[2025-04-01] MEDS: LASIX IVP ONE (19:13)
[2025-04-01] MEDS: SYMBICORT 160-4.5 MCG INHALER IH SCH (20:38)
[2025-04-01] MEDS: TOPROL XL PO SCH ×2 (20:39→20:41)
[2025-04-01] MEDS: LIPITOR PO SCH (20:39)
[2025-04-01] MEDS: DOXYCYCLINE PO SCH (20:39)
[2025-04-02] MEDS ORDERED: TYLENOL PO PRN (08:25)
[2025-04-02 08:43] LABS: IMMATURE GRANULOCYTE # (AUTO) 0.1 (0.0-1.0); IMMATURE GRANULOCYTE % (AUTO) 0.6 % (0.0-5.0); RDW COEFFICIENT OF VARIATION 15.3 % (11.6-14.8)
[2025-04-02 08:56] LABS: CREATININE 0.86 mg/dL (0.60-1.30)
[2025-04-02] MEDS: DEMADEX PO SCH (08:56)
[2025-04-02] MEDS: ROCEPHIN 1 GM/50 ML D5W 1 GM/50 ML BAG IV SCH (08:57)
[2025-04-02] MEDS ORDERED: ZOFRAN SDV IVP PRN (09:48)
--- NOTE | 2025-04-02 11:02 | PCM.PROG ---
Date/Time Seen Date Seen by Provider: 04/02/25 Time Seen by Provider: 08:30 Provider Provider: ROBERTO CARLOS RIVERO PA-C, [facility] Chief Complaint Chief Complaint: COPD & CHF EXACERBATION, CAP, HTN Subjective Subjective: Patient is speaking much better today. She is able to complete multiple sentences without difficulty. States she's still having a great deal of dyspnea with ambulation. Objective Appearance: Positive No Apparent Distress and Alert and Oriented x3 Chest/Lungs: Positive Symmetrical With Equal Breath Sounds and Wheezes (fatimah, mild. Nonlabored breathing, speaking full sentences, much improved compared to yesterday ); Negative Rales or Rhonci Heart: Positive RRR GI/: Positive Soft, Nontender, Bowel Sounds Normal and No Distention Neurological: Positive Cranial Nerves Intact, Alert and Oriented Vital Signs Vital Signs: Vital Signs: Last 24 Hours 04/01/25 11:34 04/01/25 11:34 04/01/25 11:50 Temperature 97.7 F Temperature Source Temporal Artery Scan Pulse Rate 120 H Respiratory Rate 22 H 22 H Blood Pressure Blood Pressure Mean Blood Pressure Right Arm 181/100 Blood Pressure Location Blood Pressure Position Sitting O2 Sat by Pulse Oximetry 100 Oxygen Delivery Method Nasal Cannula Nasal Cannula Oxygen Flow Rate 2 2 Height 5 ft 2 in Weight 86.8 kg Telemetry Type Remote Telemetry Telemetry Monitoring Continues Telemetry Heart Rate 120 H Telemetry SPO2 97 EKG [place] Interval 0.11 L EKG QRS Interval 0.07 Telemetry Strip Reading INITAL SINUS TACH 04/01/25 12:00 04/01/25 12:11 04/01/25 13:00 Temperature Temperature Source Pulse Rate Respiratory Rate Blood Pressure Blood Pressure Mean Blood Pressure Right Arm Blood Pressure Location Blood Pressure Position O2 Sat by Pulse Oximetry 100 Oxygen Delivery Method Nasal Cannula Nasal Cannula Nasal Cannula Oxygen Flow Rate 2 Height Weight Telemetry Type Telemetry Monitoring Telemetry Heart Rate Telemetry SPO2 EKG KS Interval EKG QRS Interval Telemetry Strip Reading 04/01/25 13:00 04/01/25 14:00 04/01/25 14:00 Temperature 97.7 F Temperature Source Temporal Artery Scan Pulse Rate 108 H Respiratory Rate Blood Pressure 130/87 Blood Pressure Mean 101 Blood Pressure Right Arm Blood Pressure Location Right Arm Blood Pressure Position Supine O2 Sat by Pulse Oximetry 97 Oxygen Delivery Method Nasal Cannula Nasal Cannula Oxygen Flow Rate 2 Height Weight Telemetry Type Remote Telemetry Telemetry Monitoring Continues Telemetry Heart Rate 107 H Telemetry SPO2 85 L EKG KS Interval 0.14 EKG QRS Interval 0.08 Telemetry Strip Reading SINUS TACH 04/01/25 14:00 04/01/25 15:00 04/01/25 16:00 Temperature Temperature Source Pulse Rate Respiratory Rate Blood Pressure Blood Pressure Mean Blood Pressure Right Arm Blood Pressure Location Blood Pressure Position O2 Sat by Pulse Oximetry 96 Oxygen Delivery Method Nasal Cannula Nasal Cannula Nasal Cannula Oxygen Flow Rate 2 Height Weight Telemetry Type Telemetry Monitoring Telemetry Heart Rate Telemetry SPO2 EKG KS Interval EKG QRS Interval Telemetry Strip Reading 04/01/25 17:00 04/01/25 18:00 04/01/25 18:00 Temperature 97.9 F Temperature Source Temporal Artery Scan Pulse Rate 115 H Respiratory Rate Blood Pressure 145/92 H Blood Pressure Mean 109 Blood Pressure Right Arm Blood Pressure Location Left Arm Blood Pressure Position Sitting O2 Sat by Pulse Oximetry 98 Oxygen Delivery Method Nasal Cannula Nasal Cannula Nasal Cannula Oxygen Flow Rate 2 Height Weight Telemetry Type Telemetry Monitoring Telemetry Heart Rate Telemetry SPO2 EKG KS Interval EKG QRS Interval Telemetry Strip Reading 04/01/25 18:00 04/01/25 19:00 04/01/25 19:00 Temperature Temperature Source Pulse Rate Respiratory Rate Blood Pressure Blood Pressure Mean Blood Pressure Right Arm Blood Pressure Location Blood Pressure Position O2 Sat by Pulse Oximetry Oxygen Delivery Method Nasal Cannula Nasal Cannula Oxygen Flow Rate Height Weight Telemetry Type Remote Telemetry Telemetry Monitoring Continues Telemetry Heart Rate 110 H Telemetry SPO2 EKG KS Interval 0.15 EKG QRS Interval 0.[address] 04/01/25 19:50 04/01/25 20:00 04/01/25 20:00 Temperature Temperature Source Pulse Rate Respiratory Rate Blood Pressure Blood Pressure Mean Blood Pressure Right Arm Blood Pressure Location Blood Pressure Position O2 Sat by Pulse Oximetry 95 Oxygen Delivery Method Nasal Cannula Nasal Cannula Nasal Cannula Oxygen Flow Rate 2 2 Height Weight Telemetry Type Telemetry Monitoring Telemetry Heart Rate Telemetry SPO2 EKG KS Interval EKG QRS Interval Telemetry Strip Reading 04/01/25 20:55 04/01/25 22:00 04/01/25 22:00 Temperature 97.2 F L Temperature Source Tympanic Pulse Rate 92 Respiratory Rate 18 Blood Pressure 99/56 L Blood Pressure Mean 70 Blood Pressure Right Arm Blood Pressure Location Left Arm Blood Pressure Position Supine O2 Sat by Pulse Oximetry 91 L Oxygen Delivery Method Nasal Cannula Nasal Cannula Nasal Cannula Oxygen Flow Rate 2 Height Weight Telemetry Type Telemetry Monitoring Telemetry Heart Rate Telemetry SPO2 EKG KS Interval EKG QRS Interval Telemetry Strip Reading 04/01/25 23:00 04/01/25 23:48 04/02/25 01:00 Temperature Temperature Source Pulse Rate Respiratory Rate Blood Pressure Blood Pressure Mean Blood Pressure Right Arm Blood Pressure Location Blood Pressure Position O2 Sat by Pulse Oximetry Oxygen Delivery Method Nasal Cannula Nasal Cannula Nasal Cannula Oxygen Flow Rate Height Weight Telemetry Type Telemetry Monitoring Telemetry Heart Rate Telemetry SPO2 EKG KS Interval EKG QRS Interval Telemetry Strip Reading 04/02/25 01:00 04/02/25 01:33 04/02/25 01:52 Temperature 97.3 F L Temperature Source Tympanic Pulse Rate 84 Respiratory Rate 16 Blood Pressure 110/65 Blood Pressure Mean 80 Blood Pressure Right Arm Blood Pressure Location Left Arm Blood Pressure Position Supine O2 Sat by Pulse Oximetry 93 L Oxygen Delivery Method Nasal Cannula Nasal Cannula Oxygen Flow Rate 2 Height Weight Telemetry Type Remote Telemetry Telemetry Monitoring Continues Telemetry Heart Rate 86 Telemetry SPO2 93 EKG KS Interval 0.13 EKG QRS Interval 0.07 Telemetry Strip Reading SR 04/02/25 03:00 04/02/25 03:54 04/02/25 04:59 Temperature Temperature Source Pulse Rate Respiratory Rate Blood Pressure Blood Pressure Mean Blood Pressure Right Arm Blood Pressure Location Blood Pressure Position O2 Sat by Pulse Oximetry Oxygen Delivery Method Nasal Cannula Nasal Cannula Nasal Cannula Oxygen Flow Rate Height Weight Telemetry Type Telemetry Monitoring Telemetry Heart Rate Telemetry SPO2 EKG KS Interval EKG QRS Interval Telemetry Strip Reading 04/02/25 05:36 04/02/25 05:42 04/02/25 05:56 Temperature 96.8 F L Temperature Source Tympanic Pulse Rate 87 Respiratory Rate 16 Blood Pressure 122/71 Blood Pressure Mean 88 Blood Pressure Right Arm Blood Pressure Location Left Arm Blood Pressure Position Supine O2 Sat by Pulse Oximetry 96 94 L Oxygen Delivery Method Nasal Cannula Nasal Cannula Nasal Cannula Oxygen Flow Rate 2 2 Height Weight Telemetry Type Telemetry Monitoring Telemetry Heart Rate Telemetry SPO2 EKG KS Interval EKG QRS Interval Telemetry Strip Reading 04/02/25 07:00 04/02/25 07:00 04/02/25 08:00 Temperature Temperature Source Pulse Rate Respiratory Rate Blood Pressure Blood Pressure Mean Blood Pressure Right Arm Blood Pressure Location Blood Pressure Position O2 Sat by Pulse Oximetry Oxygen Delivery Method Nasal Cannula Nasal Cannula Oxygen Flow Rate Height Weight Telemetry Type Remote Telemetry Telemetry Monitoring Continues Telemetry Heart Rate 93 Telemetry SPO2 95 EKG KS Interval 0.12 EKG QRS Interval 0.06 Telemetry Strip Reading SR 04/02/25 08:39 04/02/25 09:52 04/02/25 10:00 Temperature 97.3 F L Temperature Source Temporal Artery Scan Pulse Rate 90 Respiratory Rate 14 Blood Pressure 127/84 Blood Pressure Mean 98 Blood Pressure Right Arm Blood Pressure Location Left Arm Blood Pressure Position O2 Sat by Pulse Oximetry 96 95 Oxygen Delivery Method Nasal Cannula Nasal Cannula Nasal Cannula Oxygen Flow Rate 2 3 Height Weight Telemetry Type Telemetry Monitoring Telemetry Heart Rate Telemetry SPO2 EKG KS Interval EKG QRS Interval Telemetry Strip Reading 04/02/25 10:00 Temperature Temperature Source Pulse Rate Respiratory Rate Blood Pressure Blood Pressure Mean Blood Pressure Right Arm Blood Pressure Location Blood Pressure Position O2 Sat by Pulse Oximetry Oxygen Delivery Method Nasal Cannula Oxygen Flow Rate Height Weight Telemetry Type Telemetry Monitoring Telemetry Heart Rate Telemetry SPO2 EKG KS Interval EKG QRS Interval Telemetry Strip Reading Lab Results Lab Results: Lab Results: Last 24 Hours 04/02/25 04/01/25 08:30 10:12 WBC 13.38 H RBC 4.80 Hgb 12.7 Hct 42.3 MCV 88.1 MCH 26.5 L MCHC 30.0 L RDW Coeff of [place] 15.3 H Plt Count 278 Immature Gran % (Auto) 0.6 Neut % (Auto) 88.1 H Lymph % (Auto) 8.1 L [place] % (Auto) 3.1 Eos % (Auto) 0.0 Baso % (Auto) 0.1 Neut # (Auto) 11.8 H Lymph # (Auto) 1.1 [place] # (Auto) 0.4 Eos # (Auto) 0.0 Baso # (Auto) 0.0 Immature Gran # (Auto) 0.1 Sodium 140.5 Potassium 4.44 Chloride 103.9 Carbon Dioxide 28.3 Anion Gap 12.74 BUN 24.0 H Creatinine 0.86 Estimated GFR (MDRD) 69.00 BUN/Creatinine Ratio 27.90 Glucose 220.9 H D Calcium 9.86 Total Bilirubin 0.67 AST 26.2 ALT 25.6 Alkaline Phosphatase 70.6 Total Protein 7.07 Albumin 3.98 Globulin 3.09 Albumin/Globulin Ratio 1.28 Urine Opiates Screen Negative Ur Oxycodone Screen Negative Urine Methadone Screen Negative Ur Barbiturates Screen Negative U Tricyclic Antidepress Negative Ur Phencyclidine Scrn Negative Ur Amphetamine Screen Negative U Methamphetamines Scrn Positive H U Benzodiazepines Scrn Negative Urine Cocaine Screen Negative U Cannabinoids Screen Negative Additional Comments Additional Comments: I have independently reviewed and interpreted the labs/EKGs/imaging ordered during this hospital stay. I have reviewed outside records that are available in our EMR that pertain to medical stay including imaging/notes/labs from previous visits. Active Medications Active Medications: Medications Generic Name Dose Route Start Last Admin Trade Name Freq PRN Reason Stop Dose Admin Acetaminophen 650 mg 04/02/25 08:25 Acetaminophen 325 Mg Tablet PO Q4H PRN Mild Pain Albuterol/Ipratropium 3 ml 04/01/25 11:50 04/02/25 09:54 Ipratropium/Albuterol Vial.Neb NEB 3 ml RTQ4H LOVE Administration Amlodipine Besylate 10 mg 04/01/25 13:30 04/02/25 08:56 Amlodipine Besylate 5 Mg Tablet PO 10 mg DAILY LOVE Administration Aspirin 81 mg 04/03/25 07:30 Aspirin 81 Mg Tablet. PO DAILYWM2 LOVE Atorvastatin Calcium 40 mg 04/01/25 21:00 04/01/25 20:39 Atorvastatin Calcium 20 Mg Tablet PO 40 mg BEDTIME LOVE Administration Budesonide/Formoterol Fumarate 2 puff 04/01/25 21:00 04/02/25 08:57 Budesonide/Formoterol Fumarate 160/4.5 Mcg Inhaler IH 2 puff BID LOVE Administration Clopidogrel Bisulfate 75 mg 04/01/25 13:30 04/02/25 08:56 Clopidogrel Bisulfate 75 Mg Tablet PO 75 mg DAILY LOVE Administration Doxycycline Hyclate 100 mg 04/01/25 21:00 04/02/25 08:56 Doxycycline Hyclate 100 Mg Capsule PO 04/06/25 09:01 100 mg Q12HR LOVE Administration Empagliflozin 10 mg 04/01/25 13:30 04/02/25 08:56 Empagliflozin 10 Mg Tablet PO 10 mg DAILY LOVE Administration Gabapentin 600 mg 04/01/25 15:00 04/02/25 08:55 Gabapentin 300 Mg Capsule PO 600 mg TID LOVE Administration CEFTRIAXONE/D5W 1 GM PREMIX 1 gm in 50 mls @ 100 mls/hr 04/02/25 09:00 04/02/25 08:57 Rocephin 1 Gm/50 Ml D5w IV 04/05/25 08:59 100 mls/hr DAILY LOVE Administration Lisinopril 40 mg 04/01/25 13:30 04/02/25 08:56 Lisinopril 40 Mg Tablet PO 40 mg DAILY LOVE Administration Methylprednisolone Sodium Succinate 40 mg 04/01/25 13:20 04/02/25 06:07 Methylprednisolone Sod Succ/Pf 40 Mg/Ml Vial IVP 40 mg Q8HR LOVE Administration Metoprolol Succinate 100 mg 04/01/25 21:00 04/01/25 20:39 Metoprolol Succinate 50 Mg Tab.Er.24h PO 100 mg QPM LOVE Administration Metoprolol Succinate 50 mg 04/01/25 21:00 04/01/25 20:41 Metoprolol Succinate 50 Mg Tab.Er.24h PO 50 mg QPM LOVE Administration Nicotine 1 patch 04/01/25 13:50 04/02/25 08:56 Nicotine 14 Mg Patch.Td24 TD 1 patch DAILY LOVE Administration Nystatin 5 ml 04/01/25 12:00 04/02/25 06:07 Nystatin Susp 500,000 Units/5 Ml Cup PO 5 ml ACHS2 LOVE Administration Nystatin 1 applic 04/01/25 12:00 04/02/25 08:57 Nystatin 15 Gm Powder TP 1 applic BID LOVE Administration Ondansetron HCl 4 mg 04/02/25 09:48 Ondansetron Hcl/Pf 4 Mg/2 Ml Sdv IVP Q6H PRN Nausea / Vomiting Oxycodone/Acetaminophen 1 tab 04/02/25 09:48 Oxycodone/Acetaminophen 10/325 Mg Tablet PO QID PRN moderate pain Paroxetine HCl 40 mg 04/01/25 13:30 04/02/25 08:56 Paroxetine Hcl 20 Mg Tablet PO 40 mg QAM LOVE Administration Solifenacin 10 mg 04/01/25 13:30 04/02/25 08:55 Solifenacin Succinate 5 Mg Tablet PO 10 mg DAILY LOVE Administration Torsemide 20 mg 04/02/25 09:00 04/02/25 08:56 Torsemide 20 Mg Tablet PO 20 mg DAILY LOVE Administration Plan Plan: 1. Acute COPD exacerbation - abx/steroids/duonebs, wears 2L chronically. 2. Combined heart failure - Patient last EF was about 31-35%. She has followed up with [facility] but states she has a hard time with transportation. States they ordered some "tests" but she's been unable to complete. She is on jardiance, spironolactone, and beta syed. Will request records. Will monitor fluid status as she was given fluids in ER. Cont torsemide today. Appears euvolemic. 3. Hypertension - Improved, cont home meds 4. Hyperlipidemia - Cont home meds DVT Prophylaxis: Ambulation Dispo: Possible dc tomorrow Review Statement Review Statement: I have personally discussed and reviewed the patient's visit/currently labs/imaging/decision making with Dr. Faust, my supervising attending. Greater that 50 minutes spent with patient, 50% of the time spent with this patient was devoted to counseling and coordination of care.
[2025-04-03] MEDS: PERCOCET 10-325 PO PRN (04:44)
[2025-04-03 05:24] LABS: IMMATURE GRANULOCYTE # (AUTO) 0.1 (0.0-1.0); IMMATURE GRANULOCYTE % (AUTO) 0.5 % (0.0-5.0); RDW COEFFICIENT OF VARIATION 15.3 % (11.6-14.8)
[2025-04-03 05:43] LABS: CREATININE 0.94 mg/dL (0.60-1.30)
[2025-04-03 09:42] VITALS: RESP 17; TEMP 97.7
[2025-04-03] MEDS: ASPIRIN EC PO SCH (10:00)
--- NOTE | 2025-04-03 10:53 | DCSUM ---
Admission Date Admission Date: 04/01/25 Discharge Date Discharge Date: 04/03/25 Admission Diagnosis Admission Diagnosis: 1. Acute COPD exacerbation Discharge Diagnosis Discharge Diagnosis: 1. Acute COPD exacerbation 2. Combined heart failure 3. Hypertension 4. Hyperlipidemia Hospital Provider Hospital Provider: ROBERTO CARLOS RIVERO PA-C, [facility] Summary of History and Physical Summary of History and Physical: Patient is a 55 year old female with pmhx of COPD, systolic heart failure, hypertension, hypothyroidism, osteoporosis, GERD, history of drug abuse who presented to ER with worsening SOB. Patient states she is to wear O2 2L 14/11. She has been worsening over last 4 days. When she arrived she was tachy and tachypneic near 40 RR. She was given steroids, duonebs, abx. Her work of breathi ng improved, however still having conversational dyspnea, and obvious retractions once arrived to the floor. BNP above baseline. She was given fluids due to meeting SIRS. CXR negative. CTA ruled out PE. Negative flu, RSV, and covid swabs. Admitted to [facility]. Hospital Course Subjective: Patient initially was very tight, sob, unable to speak more than 1-2 words at a time. Treated with steroids/abx/duonebs, was given a mag rider. By 04/02 she was much improved but still dyspneic with ambulation. Today she is at her baseline, feeling much better. She has been on baseline O2 requirement. She often takes it off and is noncompliant. She was also given 2 doses of lasix during stay as well. Will discharge on prednisone, doxy, and cefdinir. F/u with pcp. Of note, patient has expressed concerns regarding her living situation. They are apparently being evicted by the end of the year. coke worker was able to provide her with some resources including information for [employer]. Appearance: No Apparent Distress and Alert HEENT: MMM CVS: Other (RRR) Abdomen: Soft, Non-Tender and No Distention Respiratory: Other (mild wheezing, much improved, speaks full sentences, ambulatory, non labored breathing ) Extremities: No Edema Vital Signs: Most Recent Vital Signs Temperature 97.7 F 04/03/25 09:40 Temperature Source Temporal Artery Scan 04/03/25 09:40 Temperature Source Infrared 04/01/25 08:23 Pulse Rate 68 04/03/25 09:40 Respiratory Rate 17 04/03/25 09:40 Blood Pressure 106/52 L 04/03/25 09:40 Blood Pressure Mean 70 04/03/25 09:40 Blood Pressure Right Arm 181/100 04/01/25 11:34 Blood Pressure Location Left Arm 04/03/25 09:40 Blood Pressure Position Supine 04/03/25 09:40 O2 Sat by Pulse Oximetry 94 L 04/03/25 10:24 Oxygen Delivery Method Room Air 04/03/25 10:49 Oxygen Flow Rate 3 04/03/25 09:40 Height 5 ft 2 in 04/03/25 10:35 Weight 86.8 kg 04/03/25 10:35 Telemetry Type Remote Telemetry 04/03/25 01:00 Telemetry Monitoring Continues 04/03/25 01:00 Telemetry Heart Rate 76 04/03/25 01:00 Telemetry SPO2 96 04/03/25 01:00 EKG IL Interval 0.14 04/03/25 01:00 EKG QRS Interval 0.07 04/03/25 01:00 Telemetry Strip Reading SR 04/03/25 01:00 Imaging: EXAM: CHEST RADIOGRAPH TECHNIQUE: Single frontal chest radiograph. HISTORY: Shortness of breath. COMPARISON: 11/22/24 FINDINGS: The lungs are clear. The heart size is normal. The osseous structures are unremarkable. IMPRESSION: 1. No acute disease. EXAM: CTA CHEST PE PROTOCOL HISTORY: SOB with elevated D-dimer TECHNIQUE: CTA acquisition of the chest from the thoracic inlet to the upper ab domen following IV contrast administration timed to filling of the pulmonary artery. IV Contrast: 100 mL of Omnipaque 350 administered. 3D/MIP/VR images were utilized. CT Dose Reduction Techniques Employed: Yes. COMPARISON: December 27, 2020. FINDINGS: No intraluminal filling defect is seen within the main pulmonary artery or its major segmental branches to suggest pulmonary embolism Negative for focal aneurysm, intimal dissection, or mural disruption involving the thoracic aorta. Atherosclerotic calcifications are demonstrated within the visualized arterial structures, including the [place] coronary arteries. There are mild findings of pulmonary emphysema at the bilateral lung apices. There is moderate prominence of the pulmonary vasculature, consistent with pulmonary vascular congestion There is a small right pleural effusion No pathologically enlarged thoracic lymph node is identified Limited scans through the upper abdomen are grossly unremarkable.. There is generalized osseous demineralization. Chronic degenerative changes are demonstrated throughout the visualized orthopedic structures. IMPRESSION: Negative for CTA evidence to suggest pulmonary embolism Emphysema Pulmonary vascular congestion Right pleural effusion Echo 02/10/25 Interpretation Summary Left ventricular systolic function is moderately decreased. Left ventricular ejection fraction appears to be 31 - 35%. The left ventricular cavity is mildly dilated. The following left ventricular wall segments are hypokinetic: mid anterior, apical anterior, mid inferior, basal inferoseptal, mid inferoseptal, mid anteroseptal, basal anterior, basal inferior and basal inferoseptal. Left ventricular diastolic function is consistent with (grade I) impaired relaxation. Normal right ventricular cavity size and systolic function noted. There is no significant (greater than mild) valvular dysfunction. Lab Results Last 24 Hours: Labs This Visit 04/01/25 04/01/25 04/01/25 08:34 08:38 08:45 WBC 11.09 H RBC 5.27 Hgb 14.0 Hct 46.7 MCV 88.6 MCH 26.6 L MCHC 30.0 L RDW Coeff of [place]ven[place] 15.2 H Plt Count 263 Immature Gran % (Auto) 0.3 Neut % (Auto) 69.2 Lymph % (Auto) 23.5 [place] % (Auto) 5.9 Eos % (Auto) 0.5 Baso % (Auto) 0.6 Neut # (Auto) 7.7 H Lymph # (Auto) 2.6 [place] # (Auto) 0.7 Eos # (Auto) 0.1 Baso # (Auto) 0.1 Immature Gran # (Auto) 0.0 Puncture Site [employer] Base Excess 5.2 H O2 Saturation 94.8 ABG pH 7.45 ABG pCO2 42.0 ABG pO2 71.0 L ABG HCO3 29.2 H ABG Total CO2 30.5 H Roberto Test Pos Hemoglobin 1.0 Oxyhemoglobin 93.3 L Carboxyhemoglobin 3.3 H Total Hemoglobin 11.5 L FiO2 % 21.0 Sodium 145.2 H Potassium 4.17 Chloride 104.3 Carbon Dioxide 30.9 H Anion Gap 14.17 BUN 15.8 Creatinine 0.84 Estimated GFR (MDRD) 70.00 BUN/Creatinine Ratio 18.80 Glucose 131.3 H Lactic Acid 1.55 Calcium 9.42 Magnesium 1.89 Total Bilirubin 1.03 AST 23.3 ALT 27.3 Alkaline Phosphatase 78.1 Troponin I 0.022 NT-Pro-B Natriuret Pep 35960 H Total Protein 7.97 Albumin 4.45 Globulin 3.52 Albumin/Globulin Ratio 1.26 Procalcitonin < 0.05 D-Dimer 1112.89 H Urine Color Urine Clarity Urine pH Ur Specific [place] Urine Protein Urine Glucose (UA) Urine Ketones Urine Blood Urine Nitrite Urine Bilirubin Urine Urobilinogen Ur Leukocyte Esterase Ur Squamous Epith Cells Ur Transition Epith Cell Urine Mucus Urine Opiates Screen Ur Oxycodone Screen Urine Methadone Screen Ur Barbiturates Screen U Tricyclic Antidepress Ur Phencyclidine Scrn Ur Amphetamine Screen U Methamphetamines Scrn U Benzodiazepines Scrn Urine Cocaine Screen U Cannabinoids Screen Influ A Molecular Assay Negative by naat Influ B Molecular Assay Negative by naat RSV Antigen Negative by naat SARS CoV-2 RNA Rapid ERIC Negative 04/01/25 04/02/25 04/03/25 10:12 08:30 04:55 WBC 13.38 H 15.02 H RBC 4.80 4.91 Hgb 12.7 13.1 Hct 42.3 44.0 MCV 88.1 89.6 MCH 26.5 L 26.7 L MCHC 30.0 L 29.8 L RDW Coeff of [place] 15.3 H 15.3 H Plt Count 278 327 Immature Gran % (Auto) 0.6 0.5 Neut % (Auto) 88.1 H 85.7 H Lymph % (Auto) 8.1 L 10.6 [place] % (Auto) 3.1 3.1 Eos % (Auto) 0.0 0.0 Baso % (Auto) 0.1 0.1 Neut # (Auto) 11.8 H 12.9 H Lymph # (Auto) 1.1 1.6 [place] # (Auto) 0.4 0.5 Eos # (Auto) 0.0 0.0 Baso # (Auto) 0.0 0.0 Immature Gran # (Auto) 0.1 0.1 Puncture Site Base Excess O2 Saturation ABG pH ABG pCO2 ABG pO2 ABG HCO3 ABG Total CO2 Roberto Test Hemoglobin Oxyhemoglobin Carboxyhemoglobin Total Hemoglobin FiO2 % Sodium 140.5 143.6 Potassium 4.44 4.33 Chloride 103.9 104.2 Carbon Dioxide 28.3 29.6 Anion Gap 12.74 14.13 BUN 24.0 H 30.4 H Creatinine 0.86 0.94 Estimated GFR (MDRD) 69.00 62.00 BUN/Creatinine Ratio 27.90 32.34 Glucose 220.9 H D 176.2 H Lactic Acid Calcium 9.86 9.32 Magnesium Total Bilirubin 0.67 0.31 AST 26.2 17.3 ALT 25.6 21.6 Alkaline Phosphatase 70.6 62.6 Troponin I NT-Pro-B Natriuret Pep Total Protein 7.07 6.67 Albumin 3.98 3.68 Globulin 3.09 2.99 Albumin/Globulin Ratio 1.28 1.23 Procalcitonin D-Dimer Urine Color Yellow Urine Clarity Clear Urine pH 6.5 Ur Specific [place] 1.025 Urine Protein 1+ H Urine Glucose (UA) Negative Urine Ketones Negative Urine Blood Negative Urine Nitrite Negative Urine Bilirubin Negative Urine Urobilinogen 2.0 H Ur Leukocyte Esterase Negative Ur Squamous Epith Cells 20-30 Ur Transition Epith Cell 0-2 Urine Mucus 2+ Urine Opiates Screen Negative Ur Oxycodone Screen Negative Urine Methadone Screen Negative Ur Barbiturates Screen Negative U Tricyclic Antidepress Negative Ur Phencyclidine Scrn Negative Ur Amphetamine Screen Negative U Methamphetamines Scrn Positive H U Benzodiazepines Scrn Negative Urine Cocaine Screen Negative U Cannabinoids Screen Negative Influ A Molecular Assay Influ B Molecular Assay RSV Antigen SARS CoV-2 RNA Rapid ERIC Microbiology This Visit 04/01/25 08:56 Blood Blood Culture - Preliminary NEGATIVE AFTER 2 DAYS. 04/01/25 08:38 Throat Group A Strep Molecular Assay - Final Discharge Instructions Discharge Planning: Discharge Planning > 40 minutes If patient is discharged with left ventricular systolic dysfunction: Discharged with a beta syed? Y If no, why not? [] Discharged with an pancho/arb? Y If no, why not? [] Discussed with Dr. Nicole Faust. Discharge Medications: Medications at Discharge (Home Meds & RX) albuterol sulfate 90 mcg/actuation aerosol inhaler 2 puff inhalation Q4H PRN shortness of breath or wheezing 07/15/24 amlodipine 10 mg tablet (Norvasc) 10 mg PO QDAY 07/15/24 aspirin 81 mg tablet,delayed release 81 mg PO QDAY 07/15/24 atorvastatin 40 mg tablet 40 mg PO QHS 07/15/24 clopidogrel 75 mg tablet (Plavix) 75 mg PO QDAY 07/15/24 gabapentin 600 mg tablet 600 mg PO TID 07/15/24 lisinopril 40 mg tablet 40 mg PO QDAY 07/15/24 oxycodone-acetaminophen 10 mg-325 mg tablet (Percocet) 1 tab PO QID moderate pain 07/15/24 paroxetine HCl 40 mg tablet 40 mg PO QAM 07/15/24 solifenacin 10 mg tablet (Vesicare) 10 mg PO QDAY 07/15/24 budesonide-formoterol HFA 160 mcg-4.5 mcg/actuation aerosol inhaler (Symbicort) 2 puff inhalation BID 09/23/24 ergocalciferol (vitamin D2) 1,250 mcg (50,000 unit) capsule 1,250 mcg PO WEEKLY 09/23/24 empagliflozin 10 mg tablet (Jardiance) 10 mg PO DAILY #30 tabs 11/24/24 ipratropium 0.5 mg-albuterol 3 mg (2.5 mg base)/3 mL nebulization soln 3 ml NEB RTQ4H PRN Shortness Of Breath Or Wheezing #90 mL 11/24/24 spironolactone 25 mg tablet 25 mg PO DAILY #30 tabs 11/24/24 torsemide 20 mg tablet 20 mg PO QDAY #30 tabs 11/24/24 albuterol sulfate 2.5 mg/3 mL (0.083 %) solution for nebulization 2.5 mg inhalation Q6H PRN wheezing 04/01/25 metoprolol succinate 100 mg tablet,extended release 24 hr 100 mg PO QPM 04/01/25 metoprolol succinate 50 mg tablet,extended release 24 hr 50 mg PO QPM 04/01/25 rizatriptan 10 mg tablet 10 mg PO DAILY PRN migraine headache 04/01/25 cefdinir 300 mg capsule 300 mg PO BID 3 days #6 caps 04/03/25 doxycycline hyclate 100 mg capsule 100 mg PO Q12HR 3 days #6 caps 04/03/25 prednisone 20 mg tablet 20 mg PO BID 3 days #6 tabs 04/03/25 Discharge Plan Discharge Discharge Orders: Discharge Patient (ONCE); Ordered 04/03/25 Ordered By: ROBERTO CARLOS RIVERO Activity Restrictions/Additional Instructions: DISCHARGE TO HOME DX: COPD EXACERBATION PHARMACY: [facility] ACTIVITY: TOLERATED DIET: LOW SODIUM FINISH ANTIBIOTICS AND STEROIDS WEAR YOUR OXYGEN PRESCRIBED [facility] HAS PROGRAMS FOR MENTAL HEALTH, HOMELESSNESS, AND DRUG USE. WE ENCOURAGE YOU TO CALL THEM TO OBTAIN ASSISTANCE WITH THESE THINGS. THEIR NUMBER IS [phone]. FOR ENERGY ASSISTANCE WITH [facility] PLEASE CONTACT [phone] OR VISIT THEIR WEBSITE AT [email or web address] ([facility]ARENESS [facility]ALITION) IS A PROGRAM IN [facility] TO ASSIST WITH DRUG USE RECOVERY AND PROVIDES MANY ADDITIONAL RESOURCE OPTIONS TO HELP INDIVIDUALS WITH TREATMENT, PEER SUPPORT, AND OTHER NEEDS. WE ENCOURAGE YOU TO CALL THEM [phone] AND GO TO THEIR OFFICE AT [address] [place] [address]. Instructions: Heart Failure (GEN), COPD (Chronic Obstructive Pulmonary Disease) (ED) Patient Disposition: HOME SELF-CARE Prescriptions: New doxycycline hyclate 100 mg Capsule 100 mg PO Q12HR 3 Days Qty: 6 0RF cefdinir 300 mg Capsule 300 mg PO BID 3 Days Qty: 6 0RF prednisone 20 mg tablet 20 mg PO BID 3 Days Qty: 6 0RF Continued budesonide-formoterol [Symbicort] 160-4.5 mcg/actuation HFA aerosol inhaler 2 puff inhalation BID ergocalciferol (vitamin D2) 1,250 mcg (50,000 unit) capsule 1,250 mcg PO WEEKLY Patient Comments: Pt states she should be taking this but is not 04/01/2025 LB ipratropium-albuterol 0.5 mg-3 mg(2.5 mg base)/3 mL Solution For Nebulization 3 ml NEB RTQ4H PRN (Reason: Shortness Of Breath Or Wheezing) Qty: 90 0RF torsemide 20 mg tablet 20 mg PO QDAY Qty: 30 0RF spironolactone 25 mg Tablet 25 mg PO DAILY Qty: 30 0RF Patient Comments: Pt states she is not taking as of 04/01/25 LB Jardiance 10 mg Tablet 10 mg PO DAILY Qty: 30 0RF metoprolol succinate 50 mg tablet extended release 24 hr 50 mg PO QPM Rx Instructions: Take with 100mg to total 150mg daily albuterol sulfate 2.5 mg /3 mL (0.083 %) solution for nebulization 2.5 mg inhalation Q6H PRN (Reason: wheezing) metoprolol succinate 100 mg tablet extended release 24 hr 100 mg PO QPM Rx Instructions: Take with 50mg to total 150mg daily rizatriptan 10 mg tablet 10 mg PO DAILY PRN (Reason: migraine headache) albuterol sulfate 90 mcg/actuation HFA aerosol inhaler 2 puff inhalation Q4H PRN (Reason: shortness of breath or wheezing) amlodipine [Norvasc] 10 mg tablet 10 mg PO QDAY aspirin 81 mg tablet,delayed release (DR/EC) 81 mg PO QDAY Patient Comments: Pt states she's supposed to take this but has not been 04/01/25 LB atorvastatin 40 mg tablet 40 mg PO QHS clopidogrel [Plavix] 75 mg tablet 75 mg PO QDAY gabapentin 600 mg tablet 600 mg PO TID lisinopril 40 mg tablet 40 mg PO QDAY oxycodone-acetaminophen [Percocet] 10-325 mg tablet 1 tab PO QID paroxetine HCl 40 mg tablet 40 mg PO QAM solifenacin [Vesicare] 10 mg tablet 10 mg PO QDAY Discontinued promethazine 25 mg tablet 25 mg PO QID Patient Comments: Pt states she takes this with her pain meds as they cause her nausea 04/01/25 LB Did you review [place] CLERK OF SCALES for ALL controlled substances?: Yes Discussed opioids are addictive and Narcan is available by prescription or from pharmacy.: Yes Condition: Stable
[2025-04-03 13:30] VITALS: BP 112/66; PULSE 74
== END 2025-04-03 15:30 | disposition home or self-care (01) ==
LOC: MEDSURG B 08:21 → ED 08:21 → MEDSURG B 11:34
PROVIDERS: ADMIT Hospitalist; ATTEND Physician Assistant